=== PATIENT | female | born 1945 | race Caucasian/White ===

== ENCOUNTER 2021-02-04 03:23 | Observation (INO) | payer OTHER, SELFPAY ==
[2021-02-04] VITALS (24 sets, daily range): BP systolic 97–147; BP diastolic 49–79; PULSE 59–80; RESP 16–18; TEMP 36.4–37.1; O2SAT 82–100
--- NOTE | 2021-02-04 04:01 | ED.GENADUL_ITS ---
Discharge Plan Disposition Patient Disposition: [facility] INPATIENT Condition: Good Discharge Details Chief Complaint: Abd Prob Clinical Impression: Colitis ED Provider: Polo Pires Home Meds and New Rx's Prescriptions: No Action acyclovir 400 mg Tablet 400 mg PO BID RF: 0 Xarelto 20 mg Tablet 20 mg PO DAILY RF: 0 Medical Decision Making 75-year-old female presents today for evaluation of abdominal pain. Patient states that pain began at about 10 PM, she had pork chops and cake for dinner earlier that night. She started having some loose stool, nausea, but no vomiting. She describes the pain as sharp and stabbing, it comes and goes. It is in the periumbilical region and radiates to the left abdomen. The patient is new to the area, and she has somewhat of a vague historian on her medical history but she does have a pacemaker, high cholesterol, she is on Xarelto potentially for atrial fibrillation. Of note the patient also does admit to recently taking a few leftover pills that she had from a previous urinary tract infection for a current suspected urinary tract infection a few days ago. These appear to have been Bactrim pills. Patient denies any other complaints. She denies any blood in her stool. No other modifying factors. Physical exam demonstrates mild lower abdominal tenderness in the periumbilical region, as well as left lower quadrant abdominal pain. Does radiate to the left upper quadrant as well on exam. Stool is somewhat liquidy, is orange in color, difficult to ascertain if this is diluted blood or not. Patient is on a blood thinner. Differential includes colitis, less likely mesenteric ischemia, infectious diarrhea, or C. difficile are also on the differential. We will rehydrate, get stool studies, treat the patient's pain, get a CT scan of the abdomen, monitor closely and reassess. 6:52 AM Laboratory work-up has returned, no white count or bandemia, lactate notably elevated at 2.7, electrolytes stable, creatinine 1.2, bilirubin and liver function normal, troponin and EKG is stable and otherwise unremarkable. Urinalysis shows no evidence of infection. Pending stool studies however C. difficile is negative. CT scan shows evidence of colitis of the descending and sigmoid portions, as well as a exophytic uterine fibroid and a 5.3 cm ovarian cyst. Patient symptoms at this time are inconsistent with ovarian torsion and instead clinically consistent with colitis. Patient still has moderate pain, we will redose analgesics. Based on the patient's pain, age, and risk factors I do feel inpatient admission would be beneficial for the patient at this stage. We will start Cipro Flagyl IV, and contact the hospitalist for admission. FINDINGS: Tubes, catheters and devices: Transvenous pacemaker. Heart: Cardiomegaly. Mediastinal space: Hiatal hernia. Aorta: No aortic aneurysm or aortic dissection. Scattered atherosclerotic calcifications. Celiac trunk and mesenteric arteries: No occlusion or significant stenosis. Renal arteries: No occlusion or significant stenosis. Accessory left renal artery. Right iliac arteries: No occlusion or significant stenosis. Left iliac arteries: No occlusion or significant stenosis. Liver: Liver normal in size and contour with homogeneous enhancement of parenchyma. No portal venous gas. Gallbladder and bile ducts: Unremarkable. No calcified stones. No ductal dilation. Pancreas: Unremarkable. No mass. No ductal dilation. Spleen: Unremarkable. No splenomegaly. Adrenal glands: Unremarkable. No mass. Kidneys and ureters: Hypoenhancing areas or lesions too small to characterize in each kidney. Right lower pole parapelvic or cortical cyst measures 1.4 cm. No hydronephrosis. Stomach and bowel: No dilated loops of small bowel or colonic dilatation. Diffuse wall thickening is noted in left colon from level of mid descending portion to distal sigmoid associated with hyperenhancement of mucosa and pericolonic fat stranding. No definite areas of contrast extravasation or demonstrated in colonic lumen. There are few, scattered, colonic diverticula No pneumatosis. Appendix: No evidence of appendicitis. Intraperitoneal space: No free intraperitoneal gas. No ascites. Lymph nodes: Unremarkable. No enlarged lymph nodes. Urinary bladder: Unremarkable. No mass. Reproductive: 3.5 cm mass extends ventrally from left uterine fundus. 5.3 cm right ovarian cyst. Bones/joints: No acute fracture. No dislocation. Soft tissues: There is an uncomplicated fat-containing umbilical hernia. IMPRESSION: 1. No aortic aneurysm or dissection. 2. No mesenteric, renal or iliac arterial occlusive disease. 3. Findings consistent with colitis involving descending and sigmoid portions. 4. Colonic diverticula. 5. Exophytic uterine fibroid. 6. 5.3 cm right ovarian cyst. 7. Hiatal hernia. 8. Cardiomegaly. Thank you for allowing us to participate in the care of your patient. Dictated and Authenticated by: Andrew Beltran DO 02/04/2021 6:40 AM Eastern Time ([place] & [place]) HPI General Date/Time Provider Initiated Documentation: 02/04/21 03:24 . HPI Narrative: 75-year-old female presents today for evaluation of abdominal pain. Patient states that pain began at about 10 PM, she had pork chops and cake for dinner earlier that night. She started having some loose stool, nausea, but no vomiting. She describes the pain as sharp and stabbing, it comes and goes. It is in the periumbilical region and radiates to the left abdomen. The patient is new to the area, and she has somewhat of a vague historian on her medical history but she does have a pacemaker, high cholesterol, she is on Xarelto potentially for atrial fibrillation. Of note the patient also does admit to recently taking a few leftover pills that she had from a previous urinary tract infection for a current suspected urinary tract infection a few days ago. These appear to have been Bactrim pills. Patient denies any other complaints. She denies any blood in her stool. No other modifying factors. Related Data Home Medications Medication Instructions Recorded Confirmed acyclovir 400 mg PO BID 02/04/21 02/04/21 rivaroxaban [Xarelto] 20 mg PO DAILY 02/04/21 02/04/21 Allergies Allergy/AdvReac Type Severity Reaction Status Date / Time erythromycin base AdvReac Unverified 02/04/21 05:04 Penicillins AdvReac Unverified 02/04/21 05:04 tetracycline AdvReac Unverified 02/04/21 05:04 General Stated Complaint: Abd Prob GAGAN: 2 Review of Systems All systems reviewed & are unremarkable except as noted in HPI and below PFSH Social History Smoking/Tobacco Use Status: Never Smoking risk assessment performed?: Yes Alcohol Intake: current Alcohol Intake frequency: a few times a month Drug use: Never Substance use type: does not use Do you feel safe at home: Yes Do you feel safe in your relationship?: Yes Exam Narrative Exam Narrative: 1.Const: Well-nourished, Well-developed, appearing stated age 2.Eyes: PERRL, no conjunctival injection, and symmetrical lids. 3.ENT: Atraumatic external nose and ears. Dry MM. Neck: Symmetric, trachea midline, No thyromegaly. 4.CVS: +S1/S2, No murmurs or gallops. Peripheral pulses 2+ and equal in all extremities. Brisk capillary refill in all extremities. 5.RESP: Unlabored respiratory effort. Clear to auscultation bilaterally. No wheezes rales or rhonchi 6.GI: Soft, nondistended, mild tenderness in the lower abdominal quadrant and the periumbilical region. No guarding. No rebound. 7.MSK: Normocephalic/Atraumatic, Extremities w/o deformity or ttp No cyanosis or clubbing, Normal movement of all extremities 8.Skin: Warm, Dry. No rashes or lesions. 9.Neuro: ship's master II-XII grossly intact. Sensation grossly intact, no focal neurologic deficits. 10.Psych: (AAO) x3. Appropriate mood and affect Course Vital Signs Vital signs: Blood Pressure Position Supine 02/04/21 03:41 Oxygen Delivery Method Room Air 02/04/21 03:41 Oxygen Flow Rate 0 02/04/21 03:41
--- NOTE | 2021-02-04 04:15 | RT.EKG_ITS ---
APPROVED REPORT Exam: Resting ECG Reason for Exam: abdominal pain Patient Location: E HR:63 bpm ECG Measurements Heart Rate 63 AXIS SC 144 P 0 QRSd 92 QRS 55 QT 470 T 42 QTc 480 Conclusion Sinus rhythm...normal P axis, V-rate 60- 99 Physician: no stemi
--- NOTE | 2021-02-04 04:17 | DI.CT_ITS ---
Exam(s) CT ABDOMEN PELVIS CTA EXAM: CT ABDOMEN PELVIS CTA CLINICAL HISTORY: abdominal pain, diarrhea, afib, bloody stool?. TECHNIQUE: Imaging Protocol: Axial CT angiography was performed with multi-slice acquisition and m ulti-planar and/or 3D reconstructions. CONTRAST MATERIAL: Intravenous: Omnipaque 350 Contrast volume:85 mL Oral: No COMPARISON: No exams were available for comparison FINDINGS: ABDOMEN AND PELVIS: Abdomen: Celiac axis/mesenteric arteries: No evidence of occlusion or significant stenosis. Renal Arteries: No evidence of occlusion or significant stenosis. There is a single renal artery per fusing each kidney. Moderate atherosclerosis at the origin of the right renal artery. Aorta: No evidence of occlusion or significant stenosis. No aneurysm or dissection. Atherosclerosi s. Pelvis: Iliac Arteries: No evidence of occlusion or significant stenosis. Mild atherosclerosis. Common Femoral Arteries: No evidence of occlusion or significant stenosis. ABDOMEN: Lung bases: No acute abnormality. Small hiatal hernia. Transvenous cardiac pacemaker. Liver: Normal density. No measurable mass. Portal, Superior Mesenteric, and Splenic Veins: Unremarkable. Gallbladder and Biliary Tract: No radiodense calculus or dilation. Pancreas: Normal density, no abnormal calcifications or inflammatory process. Spleen: Normal. Adrenals: No masses seen. Kidneys: Normal size, contour and axis. No radiodense stones or obstructive uropathy. No masses seen. Bowel: No evidence of obstruction. There is diffuse bowel wall thickening from the mid descending co shelley into the sigmoid colon with mild pericolonic fat stranding. There are few scattered diverticula in the sigmoid colon. No evidence of appendicitis. There are few diverticula in the colon but no ev idence of acute diverticulitis Peritoneal Cavity: No ascites, collection or mesenteric inflammatory response. No free air. Lymph Nodes: Within normal limits. Bones: Within normal limits. Soft Tissues: Unremarkable. PELVIS: Bladder: Incompletely distended, but grossly unremarkable. Reproductive Organs: There is a 3.1 x 3.2 cm exophytic left uterine fibroid. There is a 5.3 x 4.2 cm right ovarian cyst. Lymph Nodes: Within normal limits. Bones: Within normal limits. IMPRESSION: 1. Findings of colitis involving the descending and sigmoid colons. 2. 5.3 cm right ovarian cyst. Gynecologic follow-up is recommended in this postmenopausal patient. 3. Uterine fibroid. 4. No evidence of abdominal aortic aneurysm or dissection. RADIATION DOSE DELIVERED: 995.74mGy.cm Total DLP 995.74mGy.cm Total DLP DATA REPOSITORY: All CT scans at this facility are submitted to the National Radiology Data Registry (NRDR) Dose Index Registry (DIR) with the [employer] (ACR). RADIATION OPTIMIZATION: All CT scans at this facility use at least one of these dose optimization te chniques: automated exposure control; mA and/or kV adjustment per patient size (includes targeted exa ms where dose is matched to clinical indication); or iterative reconstruction.
[2021-02-04 04:21] LABS: Bilirubin Moderate (Negative); Blood Negative (Negative); Clarity Sl Cloudy (Clear); Glucose Negative (Negative); Ketones Trace mg/dL (Negative); Leukocyte Esterase Negative (Negative); Nitrite Negative (Negative); Specific Gravity >= 1.030 (1.005-1.025); pH 5.5 (5-8)
[2021-02-04 04:33] LABS: Abs Immature Grans 0.03 10^3/uL (0.0-0.06); Absolute Basophil Count 0.06 10^3/uL (0.0-0.2); Absolute Lymphocyte Count 1.49 10^3/uL (1.2-3.4); Absolute Monocyte Count 0.62 10^3/uL (0.1-0.8); Absolute Neutrophil Count 8.09 10^3/uL (1.2-6.7); Basophils % 0.6; HGB 13.5 g/dL (11.2-15.7); Immature Grans % 0.3; Lymphocytes % 14.3; MCH 32.4 pg (27.0-33.0); MCHC 31.4 % (32.0-36.0); MCV 103.1 fL (80-95); MPV 9.2 fL (8.0-11.0); Neutrophils % 77.8; Nucleated RBC 0 %; Platelet Count 232 10^3/uL (130-400); RBC 4.17 10^6/uL (3.93-5.22); RDW 13.2 % (11.7-14.6); RDW-SD 50.9 fL; WBC 10.39 10^3/uL (4.4-10.8)
[2021-02-04 04:37] LABS: Lactate 2.7 mmol/L (0.6-1.4)
[2021-02-04] MEDS: Normal Saline 1,000 ML 1000 ML IV (04:47)
[2021-02-04 04:58] LABS: ALT 22 U/L (14-59); AST 26 U/L (15-37); Albumin 4.1 g/dL (3.4-5.0); Alkaline Phosphatase 77 U/L (46-116); Anion Gap 14.5 mmol/L (3-11); BUN 23 mg/dL (7-18); Bilirubin, Total 0.6 mg/dL (0.2-1.0); CO2 21.5 mmol/L (21.0-32.0); CREATININE 1.2 mg/dL (0.55-1.02); Calcium 8.5 mg/dL (8.5-10.1); Chloride 106 mmol/L (98-107); Estimated GFR 44.04 (mL/min/1.73m2); Glucose 184 mg/dL (74-106); Potassium 3.9 mmol/L (3.5-5.1); Sodium 142 mmol/L (136-145); Total Protein 7.2 g/dL (6.4-8.2)
[2021-02-04 05:01] LABS: Troponin I < 0.05 ng/mL (<0.06)
[2021-02-04 05:26] LABS: C Diff PCR Negative (Negative)
[2021-02-04] MEDS: Omnipaque 350 MG/ML 100 ML BTL IJ (05:38)
[2021-02-04] MEDS: Normal Saline Flush 10 ML SYR IVP ×4 (05:40→21:55)
--- NOTE | 2021-02-04 06:40 | DI.VRAD_ITS ---
PROCEDURE INFORMATION: Exam: CTA Abdomen and Pelvis With Contrast Exam date and time: 02/04/2021 4:57 AM Age: 75 years old Clinical indication: Other: Bloody stools, diarrhea, afib; Generalized; Prior surgery; Surgery date: 6+ months; Surgery type: Pacemaker; Patient HX: Abdominal pain, diarrhea, afib, bloody stool? . ? Mesenteric ischemia TECHNIQUE: Imaging protocol: Computed tomographic angiography of the abdomen and pelvis with contrast material. 3D rendering (Not supervised by radiologist): MIP and/or 3D reconstructed images were created by the technologist. Radiation optimization: All CT scans at this facility use at least one of these dose optimization techniques: automated exposure control; mA and/or kV adjustment per patient size (includes targeted exams where dose is matched to clinical indication); or iterative reconstruction. Contrast material: OMNIPAQUE 350; Contrast volume: 85 ml; Contrast route: INTRAVENOUS (IV); COMPARISON: No relevant prior studies available. FINDINGS: Tubes, catheters and devices: Transvenous pacemaker. Heart: Cardiomegaly. Mediastinal space: Hiatal hernia. Aorta: No aortic aneurysm or aortic dissection. Scattered atherosclerotic calcifications. Celiac trunk and mesenteric arteries: No occlusion or significant stenosis. Renal arteries: No occlusion or significant stenosis. Accessory left renal artery. Right iliac arteries: No occlusion or significant stenosis. Left iliac arteries: No occlusion or significant stenosis. Liver: Liver normal in size and contour with homogeneous enhancement of parenchyma. No portal venous gas. Gallbladder and bile ducts: Unremarkable. No calcified stones. No ductal dilation. Pancreas: Unremarkable. No mass. No ductal dilation. Spleen: Unremarkable. No splenomegaly. Adrenal glands: Unremarkable. No mass. Kidneys and ureters: Hypoenhancing areas or lesions too small to characterize in each kidney. Right lower pole parapelvic or cortical cyst measures 1.4 cm. No hydronephrosis. Stomach and bowel: No dilated loops of small bowel or colonic dilatation. Diffuse wall thickening is noted in left colon from level of mid descending portion to distal sigmoid associated with hyperenhancement of mucosa and pericolonic fat stranding. No definite areas of contrast extravasation or demonstrated in colonic lumen. There are few, scattered, colonic diverticula No pneumatosis. Appendix: No evidence of appendicitis. Intraperitoneal space: No free intraperitoneal gas. No ascites. Lymph nodes: Unremarkable. No enlarged lymph nodes. Urinary bladder: Unremarkable. No mass. Reproductive: 3.5 cm mass extends ventrally from left uterine fundus. 5.3 cm right ovarian cyst. Bones/joints: No acute fracture. No dislocation. Soft tissues: There is an uncomplicated fat-containing umbilical hernia. IMPRESSION: 1. No aortic aneurysm or dissection. 2. No mesenteric, renal or iliac arterial occlusive disease. 3. Findings consistent with colitis involving descending and sigmoid portions. 4. Colonic diverticula. 5. Exophytic uterine fibroid. 6. 5.3 cm right ovarian cyst. 7. Hiatal hernia. 8. Cardiomegaly. Dictated and Authenticated by: Andrew Beltran MD. Ordering:CHUCK Cuellar MD
[2021-02-04 07:00] LABS: Source Nasal/Nares
[2021-02-04] MEDS: CIPROFLOXACIN 400 MG/200 ML BAG 200 MG IVPB ×2 (07:21→20:22)
[2021-02-04] MEDS: metroNIDAZOLE 500 MG/100 ML BAG 100 MG IVPB ×2 (07:22→16:29)
[2021-02-04] MEDS: Lactated Ringers 1,000 ML 50 ML IV (09:57)
[2021-02-04 10:04] LABS: COVID-19 PCR Negative (Negative)
[2021-02-04] MEDS: Acetaminophen 500 MG TAB 1000 MG PO ×2 (10:09→21:54)
[2021-02-04] MEDS: MORPHine 4 MG/ML SYR IVP (10:45)
--- NOTE | 2021-02-04 11:34 | PT.INNT ---
Date of service: 02/04/21 PT Notes Visit Reasons: Colitis Per consultation with prescribing provider TAURUS Laureano, PT order will be withdrawn as patient has been independent inside her room. Thank you for the opportunity to participate in the care of this patient. Elisha Barclay PT, DPT, CLT [facility] [place], [place]
--- NOTE | 2021-02-04 12:33 | W.GYNCONSULT ---
Date of service: 02/04/21 Time of Service: 12:33 Assessment and Plan Assessment and plan (1) Ovarian cyst: Status: Acute Assessment and plan: Pt reports that ovarian cyst has been present for years. Incidental finding at time of eval for abdominal pain in [place]. Hand Ii Blocker was planning to perform bilateral salpingectomy but insurance issues prevented from surgery being completed. Has serial hCGs-nl. I recommend pelvic u/s while hospitalized to better characterize the cyst. Expectant management advised at this time. Qualifiers: Laterality: right Qualified Code(s): N83.201 - Unspecified ovarian cyst, right side (2) Pacemaker: Status: Acute (3) Abdominal pain: Status: Acute Assessment and plan: based on today's exam I doubt that abd pain is result of ovarian cyst. I told pt that I would be happy to follow her as an outpt in [facility] dept. Qualifiers: Abdominal location: lower abdomen, unspecified Qualified Code(s): R10.30 - Lower abdominal pain, unspecified (4) Lipoma of anterior chest wall: Status: Acute Assessment and plan: It is becoming symptomatic. Will address as an outpt. (5) Mastalgia: Status: Acute Assessment and plan: Pt does not recall the date of her prior mammogram. Can be evaluated as an outpt. History of Present Illness History of Present Illness Chief Complaint: R sided ovarian cyst Narrative: Pt is a postmenopausal P2 female who was noted to have a R sided 5.3cm ovarian cyst on CT performed on 02/04/21. The imaging was ordered to assess abdominal pain and she was given diagnosis of colitis. Pt reports the the cyst has been present for a number of years and was scheduled to be removed until her insurance changed and she was followed with serial CA 125's instead, all of which were normal. She reports that she has never been symptomatic as a result of the ovarian cyst. PGynHx. 52yo. Menopause. No postmenopausal bleeding. Nl Mammograms. Can't recall most recent mammogram. Nl Pap hx. Not sexually active. Consults Consult date: 02/04/21 Requesting physician: Sridevi Lacy Review of Systems Narrative: Pt is a 75yo postmenopausal P2 female who was admitted to hospitalist service this morning after presenting to the [facility] ED with generalized abdominal pain and diarrhea Respiratory Respiratory: Reports system reviewed and no additional complaints, except as documented Gastrointestinal Gastrointestinal: Reports abdominal pain (generalized per pt report) and Reports diarrhea (brown, yellow ) Genitourinary Genitourinary: Reports amenorrhea, Denies prolapse symptoms, Denies urinary incontinence, Denies urinary urgency and Denies vaginal odor Integumentary/Breasts Skin/Breast: Reports breast mass (R breast lateral aspect. ) Psychiatric Comments: [place]oved to [place] from [place] in November. Trying to establish health care and find low income housing. [facility] Medical History (Updated 02/04/21 @ 16:07 by Maria Luz Crow MD) Abdominal pain 01/2021. Dx diverticulosis Cardiomegaly Colitis Findings consistent with colitis involving descending and sigmoid portions. Colonic diverticulum Hiatal hernia Lipoma of anterior chest wall Ovarian cyst R sided 5.3cm. Previously followed in [place]. Serial nl [id number]. Pacemaker Uterine fibroid Surgical History (Updated 02/04/21 @ 12:48 by Maria Luz Crow MD) H/O: section Social History (Updated 02/04/21 @ 12:51 by Maria Luz Crow MD) Smoking/Tobacco Use Status: Never Smoking risk assessment performed?: Yes Alcohol Intake: current Alcohol Intake frequency: a few times a month Drug use: Never Substance use type: does not use Household members: family and other Details: living with adult daughter and her family. 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 Sexually active: No Do you feel safe at home: Yes Do you feel safe in your relationship?: Yes Female Reproductive History Menstrual Menopause type: natural (in her 50's) History History Para 2 Hx # Term Pregnancies Multiple births Hx # Pregnancies Ectopic pregnancies AB induced Hx Number of Living Children 2 AB spontaneous Exam Narrative Exam Narrative: Pt presented to [facility] ED with worsening abdominal pain, diarrhea. Pt was found to have L sided diverticulitis extending to the sigmoid colon and admitted to the Hospitalist Service. At the time of admission: Troponin was negative, venous blood gas Lactate elevated @ 2.7, WBC nl and CR 1.2. No evidence of UTI. CT imaging of the pelvis show a 5.3cm R ovarian cyst. Nl mass identified on the L ovary. Uterus nl size with small fundal fibroid. I was asked to consult regarding the R sided ovarian cyst. Const General: no acute distress Nutritional Appearance: average body habitus Orientation: alert, awake and oriented x3 Chest Chest: normal inspection of the chest Breast inspection: normal inspection of the breasts, normal inspection of the axillae and abnormal inspection of the axilla Breast palpation: normal palpation of the breasts (1cm area of tenderness R breast - outer aspect.), normal palpation of the axillae and no axillary lymphadenopathy Chest/axillae images: 1. Lipoma 2. focal breast tenderness Resp Effort & Inspection: normal respiratory effort GI Inspection: normal to inspection and scar (not visible) Palpation: soft, no hepatosplenomegaly and mass (beneath lateral aspect of L breast) LUQ soft (4x4cm in diameter) and tender (only when rolling onto her L side) Percussion: normal to percussion Rectal Exam - female: deferred General: No CVA tenderness and deferred (Majority of the visit was spent in obtaining Hand Ii Blocker Hx) Back/Spine/Pelvis Back: no CVA tenderness Pelvis: no pain with anterior-posterior compression and no pain with lateral compression Skin General skin exam: no rashes or lesions noted (Lipoma) Extrem General: normal to inspection Psych Appearance: grossly normal Mental Status: mental status grossly normal Speech and Movement: speech and movement normal Mood: anxious mood Affect: anxious affect Attitude: cooperative Thought Process: normal Thought Content: normal Insight: insight good Judgment: judgment good Results Last Vital Signs Temp 98.2 F 02/04/21 08:40 Pulse 70 02/04/21 08:40 Resp 18 02/04/21 08:40 BP 133/76 02/04/21 08:40 Pulse Ox 98 02/04/21 08:40 Labs Result diagrams: 02/04/21 04:25 02/04/21 04:25 Labs: Laboratory Results - last 24 hr 02/04/21 02/04/21 02/04/21 04:00 04:10 04:25 WBC RBC Hgb Hct MCV MCH MCHC RDW Plt Count MPV Immature Gran % Neutrophils % Lymphocytes % Monocytes % Eosinophils % Basophils % Nucleated RBC % Absolute Neutrophils Absolute Lymphocytes Absolute Monocytes Absolute Eosinophils Absolute Basophils VBG Lactate Sodium 142 Potassium 3.9 Chloride 106 Carbon Dioxide 21.5 Anion Gap 14.5 H BUN 23 H Creatinine 1.2 H Estimated GFR/1.73 m2 44.04 Glucose 184 H Calcium 8.5 Total Bilirubin 0.6 AST 26 ALT 22 Alkaline Phosphatase 77 Troponin I Total Protein 7.2 Albumin 4.1 Urine Color Avis Urine Clarity Sl Cloudy Urine pH 5.5 Ur Specific [place] >= 1.030 H Urine Protein Negative Urine Ketones Trace H Urine Blood Negative Urine Nitrite Negative Urine Bilirubin Moderate H Urine Urobilinogen 1.0 H Ur Leukocyte Esterase Negative Urine Glucose Negative Stl C.difficile Tox PCR Negative COVID-19 Source SARS-CoV-2 (PCR) 02/04/21 02/04/21 02/04/21 04:25 04:25 04:25 WBC 10.39 RBC 4.17 Hgb 13.5 Hct 43.0 MCV 103.1 H MCH 32.4 MCHC 31.4 L RDW 13.2 Plt Count 232 MPV 9.2 Immature Gran % 0.3 Neutrophils % 77.8 Lymphocytes % 14.3 Monocytes % 6.0 Eosinophils % 1.0 Basophils % 0.6 Nucleated RBC % 0 Absolute Neutrophils 8.09 H Absolute Lymphocytes 1.49 Absolute Monocytes 0.62 Absolute Eosinophils 0.10 Absolute Basophils 0.06 VBG Lactate 2.7 H* Sodium Potassium Chloride Carbon Dioxide Anion Gap BUN Creatinine Estimated GFR/1.73 m2 Glucose Calcium Total Bilirubin AST ALT Alkaline Phosphatase Troponin I < 0.05 Total Protein Albumin Urine Color Urine Clarity Urine pH Ur Specific [place] Urine Protein Urine Ketones Urine Blood Urine Nitrite Urine Bilirubin Urine Urobilinogen Ur Leukocyte Esterase Urine Glucose Stl C.difficile Tox PCR COVID-19 Source SARS-CoV-2 (PCR) 02/04/21 06:55 WBC RBC Hgb Hct MCV MCH MCHC RDW Plt Count MPV Immature Gran % Neutrophils % Lymphocytes % Monocytes % Eosinophils % Basophils % Nucleated RBC % Absolute Neutrophils Absolute Lymphocytes Absolute Monocytes Absolute Eosinophils Absolute Basophils VBG Lactate Sodium Potassium Chloride Carbon Dioxide Anion Gap BUN Creatinine Estimated GFR/1.73 m2 Glucose Calcium Total Bilirubin AST ALT Alkaline Phosphatase Troponin I Total Protein Albumin Urine Color Urine Clarity Urine pH Ur Specific [place] Urine Protein Urine Ketones Urine Blood Urine Nitrite Urine Bilirubin Urine Urobilinogen Ur Leukocyte Esterase Urine Glucose Stl C.difficile Tox PCR COVID-19 Source Nasal/Nares SARS-CoV-2 (PCR) Negative
--- NOTE | 2021-02-04 13:44 | HPE_ITS ---
Date of service: 02/04/21 Time of Service: 10:00 Assessment and Plan Assessment and plan (1) Colitis: Start date: 02/04/21 Start time: 10:00 Status: Acute Assessment and plan: Found on CT initiated on IVF LR @ 50, clear unless nauseated then NPO antiemetics, analgesics for pain cipro and flagyl repeat labs in am (2) Pacemaker: Start date: 02/04/21 Start time: 10:00 Status: Acute Assessment and plan: On xarelto 20 mg murmur and mitral regurgitation (3) Ovarian cyst: Start date: 02/04/21 Start time: 10:00 Status: Chronic Assessment and plan: Found to have 5.3 mm ovarian right cyst. MAMMAL CONTROL AGENT consulted. Transvangianal u/s placed by orthotic assistant urgent pending Will have orthotic assistant follow Qualifiers: Laterality: right Qualified Code(s): N83.201 - Unspecified ovarian cyst, right side (4) Abdominal pain: Start date: 02/04/21 Start time: 10:00 Status: Acute Assessment and plan: to lower abdomen worse in RLQ, see note for CT results as above Qualifiers: Abdominal location: lower abdomen, unspecified Qualified Code(s): R10.30 - Lower abdominal pain, unspecified (5) DVT prophylaxis: Start date: 02/04/21 Start time: 10:00 Status: Acute Assessment and plan: on xarelto for possible afib though HR RRR (6) Discharge planning issues: Start date: 02/04/21 Start time: 10:00 Status: Acute Assessment and plan: Discharge home when medically ready discussed with Nolker History of Present Illness History of Present Illness Chief Complaint: Abdominal pain Narrative: 75 y.o female with PMH of pacemaker, questionable afib, presented to [facility] with c/o of nausea and abdominal pain. Pain began night prior to admission after eating dinner. She states pain is worse in bilateral lower quadrants of her abdomen. Labs in the ED remarkable for elevated anion gap of 14.5, BUN 23 and creatinine of 1.2, glucose of 184. She was asked to be admitted to /s for further management. CTA revealed 1. Findings of colitis involving the descending and sigmoid colons. 2. 5.3 cm right ovarian cyst. Gynecologic follow-up is recommended in this postmenopausal patient. 3. Uterine fibroid. 4. No evidence of abdominal aortic aneurysm or dissection. Cipro and flagyl initiated, orthotic assistant consulted d/t cyst. See note from them. analgesic for pain, IV hydration with antiemetics. Will start on clears if feeling sick will make NPO. Review of Systems All systems reviewed & are unremarkable except as noted in HPI and below PFSH Medical History Abdominal pain 01/2021. Dx diverticulosis Cardiomegaly Colitis Findings consistent with colitis involving descending and sigmoid portions. Colonic diverticulum Hiatal hernia Lipoma of anterior chest wall Ovarian cyst R sided 5.3cm. Previously followed in [place]. Serial nl [id number]. Pacemaker Uterine fibroid Surgical History H/O: section Social History Smoking/Tobacco Use Status: Never Smoking risk assessment performed?: Yes Alcohol Intake: current Alcohol Intake frequency: a few times a month Drug use: Never Substance use type: does not use Household members: family and other Details: living with adult daughter and her family. 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 Sexually active: No Do you feel safe at home: Yes Do you feel safe in your relationship?: Yes Female Reproductive History Menstrual Menopause type: natural (in her 50's) History History Para 2 Hx # Term Pregnancies Multiple births Hx # Pregnancies Ectopic pregnancies AB induced Hx Number of Living Children 2 AB spontaneous Meds Allergies and Home Medications Allergies Allergy/AdvReac Type Severity Reaction Status Date / Time erythromycin base AdvReac Unverified 02/04/21 05:04 Penicillins AdvReac Unverified 02/04/21 05:04 tetracycline AdvReac Unverified 02/04/21 05:04 Home Medications Medication Instructions Recorded Confirmed Type acyclovir 400 mg PO BID 02/04/21 02/04/21 History rivaroxaban [Xarelto] 20 mg PO DAILY 02/04/21 02/04/21 History Exam Const General: cooperative, comfortable and no acute distress Orientation: alert, awake and oriented x3 HENMT Head: normal to inspection, normocephalic and atraumatic Mouth: moist mucous membranes Eyes Eyelids: eyelids normal Pupils: PERRL EOM: EOM intact bilaterally Neck Neck: normal visual inspection and no JVD Lymphatic: no lymphadenopathy noted Resp Effort & Inspection: normal respiratory effort Auscultation: clear to auscultation bilaterally Cardio Jugular venous pressure: no JVD Rhythm: regular rhythm Heart Sounds: S1 normal GI Palpation: tender (severe pain with palpation to RLQ) in the LLQ and in the RLQ Auscultation: normal bowel sounds General: No CVA tenderness and deferred Skin General skin exam: no rashes or lesions noted Neuro General: patient alert, patient awake and patient oriented x3 Cognition: normal cognition Speech: speech normal Gait: normal gait Extrem General: normal to inspection, full ROM and no clubbing, cyanosis or edema Results Labs Result diagrams: 02/04/21 04:25 02/04/21 04:25 Labs: Laboratory Results - last 24 hr 02/04/21 02/04/21 02/04/21 04:00 04:00 04:10 WBC RBC Hgb Hct MCV MCH MCHC RDW Plt Count MPV Immature Gran % Neutrophils % Lymphocytes % Monocytes % Eosinophils % Basophils % Nucleated RBC % Absolute Neutrophils Absolute Lymphocytes Absolute Monocytes Absolute Eosinophils Absolute Basophils VBG Lactate Sodium Potassium Chloride Carbon Dioxide Anion Gap BUN Creatinine Estimated GFR/1.73 m2 Glucose Calcium Total Bilirubin AST ALT Alkaline Phosphatase Troponin I Total Protein Albumin Urine Color Avis Urine Clarity Sl Cloudy Urine pH 5.5 Ur Specific Etters >= 1.030 H Urine Protein Negative Urine Ketones Trace H Urine Blood Negative Urine Nitrite Negative Urine Bilirubin Moderate H Urine Urobilinogen 1.0 H Ur Leukocyte Esterase Negative Urine Glucose Negative Stl C.difficile Tox PCR Negative COVID-19 Source SARS-CoV-2 (PCR) Cryptosporidium/Giardia Cancelled 02/04/21 02/04/21 02/04/21 04:25 04:25 04:25 WBC 10.39 RBC 4.17 Hgb 13.5 Hct 43.0 MCV 103.1 H MCH 32.4 MCHC 31.4 L RDW 13.2 Plt Count 232 MPV 9.2 Immature Gran % 0.3 Neutrophils % 77.8 Lymphocytes % 14.3 Monocytes % 6.0 Eosinophils % 1.0 Basophils % 0.6 Nucleated RBC % 0 Absolute Neutrophils 8.09 H Absolute Lymphocytes 1.49 Absolute Monocytes 0.62 Absolute Eosinophils 0.10 Absolute Basophils 0.06 VBG Lactate 2.7 H* Sodium 142 Potassium 3.9 Chloride 106 Carbon Dioxide 21.5 Anion Gap 14.5 H BUN 23 H Creatinine 1.2 H Estimated GFR/1.73 m2 44.04 Glucose 184 H Calcium 8.5 Total Bilirubin 0.6 AST 26 ALT 22 Alkaline Phosphatase 77 Troponin I Total Protein 7.2 Albumin 4.1 Urine Color Urine Clarity Urine pH Ur Specific Etters Urine Protein Urine Ketones Urine Blood Urine Nitrite Urine Bilirubin Urine Urobilinogen Ur Leukocyte Esterase Urine Glucose Stl C.difficile Tox PCR COVID-19 Source SARS-CoV-2 (PCR) Cryptosporidium/Giardia 02/04/21 02/04/21 04:25 06:55 WBC RBC Hgb Hct MCV MCH MCHC RDW Plt Count MPV Immature Gran % Neutrophils % Lymphocytes % Monocytes % Eosinophils % Basophils % Nucleated RBC % Absolute Neutrophils Absolute Lymphocytes Absolute Monocytes Absolute Eosinophils Absolute Basophils VBG Lactate Sodium Potassium Chloride Carbon Dioxide Anion Gap BUN Creatinine Estimated GFR/1.73 m2 Glucose Calcium Total Bilirubin AST ALT Alkaline Phosphatase Troponin I < 0.05 Total Protein Albumin Urine Color Urine Clarity Urine pH Ur Specific Etters Urine Protein Urine Ketones Urine Blood Urine Nitrite Urine Bilirubin Urine Urobilinogen Ur Leukocyte Esterase Urine Glucose Stl C.difficile Tox PCR COVID-19 Source Nasal/Nares SARS-CoV-2 (PCR) Negative Cryptosporidium/Giardia Last Vital Signs Temp 36.8 C 02/04/21 08:40 Pulse 70 02/04/21 08:40 Resp 18 02/04/21 08:40 BP 133/76 02/04/21 08:40 Pulse Ox 98 02/04/21 08:40
[2021-02-04] MEDS: Prochlorperazine 10 MG/2 ML VIAL IVP ×2 (14:21→21:53)
--- NOTE | 2021-02-04 16:51 | CHAPLAIN ---
Juani was resting in bed when I visited. She was pleasant and easily engaged in a conversation. She is new to the area and anticipating moving into the new [facility] apartments when they are finished. The move-in date has been delayed. Juani recently moved from [place] to [place] to be closer to her daughter and a brother. She is an artist, creating both commercial and fine art. Juani said relocating hasn't been as easy as she thought it would be. She first believed that she has food poisoning, and said she may have colitis now. Juani explained that at 75 she hasn't decided what pentecostalism denomination she follows. She is interested in learning more about the [employer], thinking her beliefs may more in line with that denomination.
[2021-02-04] MEDS: Pantoprazole 40 MG TABCR PO (20:22)
[2021-02-04 23:07] LABS: Campylobacter PCR Negative (Negative); Salmonella PCR Negative (Negative); Shiga Toxin PCR Negative (Negative); Shigella/Enteroinvasive Ecoli Negative (Negative)
--- NOTE | 2021-02-05 | DI.US_ITS ---
Exam(s) US PELVIS EXAM: US PELVIS CLINICAL HISTORY: evaluate appearance of known R ovarian cyst.. TECHNIQUE: Transabdominal pelvic ultrasound was performed using standard protocol. COMPARISON: CT CT ABDOMEN PELVIS CTA from 02/04/2021 FINDINGS: KIDNEYS: Kidneys are symmetric in size. No evidence of renal calculi. No evidence of hydronephrosis. No renal mass or cyst identified. UTERUS: Position: Anteverted. Size: 5.2 long by 3.1 AP by 4.8 transverse cm Endometrium: 0.3 cm. Normal for patient's menstrual status. Myometrium: There is a 3.4 x 3 x 3.3 cm fibroid arising from the fundal and left aspect of the uterus . This can be seen on the CT scan of the abdomen and pelvis from 02/04/2021. Cervix: Unremarkable. OVARIES: Right: 2.8 x 2.6 x 2.1 cm Cyst or mass: There is a 5.4 x 4.2 x 6 cm right paraovarian cyst. The cyst is simple with no solid c omponents or abnormal blood flow. Other small follicular cysts are seen. Left: 1.7 x 1.6 x 1.2 cm Cyst or mass: Small follicular cysts are present. DOPPLER: Color: Symmetric and uniform flow to both ovaries. No hyperemia. Duplex: Normal ovarian arterial waveforms visualized. CUL-DE-SAC: Free fluid: None. Other: None. IMPRESSION: 1. Normal sonographic appearance of the kidneys. 2. 3.4 cm exophytic uterine fibroid. 3. 6 cm simple right paraovarian/ovarian cyst. DATA REPOSITORY:
[2021-02-05] MEDS: metroNIDAZOLE 500 MG/100 ML BAG 100 MG IVPB ×3 (00:06→15:59)
[2021-02-05 03:47] VITALS: BP 100/67; PULSE 62; RESP 18; TEMP 36.6; O2SAT 97
[2021-02-05 07:12] LABS: Abs Immature Grans 0.01 10^3/uL (0.0-0.06); Absolute Basophil Count 0.03 10^3/uL (0.0-0.2); Absolute Eosinophil Count 0.07 10^3/uL (0.0-0.7); Absolute Lymphocyte Count 1.39 10^3/uL (1.2-3.4); Absolute Monocyte Count 0.45 10^3/uL (0.1-0.8); Absolute Neutrophil Count 3.94 10^3/uL (1.2-6.7); Basophils % 0.5; Eosinophils % 1.2; HCT 34.7 % (36.0-46.0); HGB 11.1 g/dL (11.2-15.7); Immature Grans % 0.2; Lymphocytes % 23.6; MCH 32.1 pg (27.0-33.0); MCV 100.3 fL (80-95); MPV 9.3 fL (8.0-11.0); Monocytes % 7.6; Neutrophils % 66.9; Nucleated RBC 0 %; Platelet Count 191 10^3/uL (130-400); RBC 3.46 10^6/uL (3.93-5.22); RDW 13.3 % (11.7-14.6); RDW-SD 49.5 fL; WBC 5.89 10^3/uL (4.4-10.8)
[2021-02-05 07:35] LABS: Anion Gap 7.5 mmol/L (3-11); BUN 12 mg/dL (7-18); CO2 23.5 mmol/L (21.0-32.0); Calcium 8.5 mg/dL (8.5-10.1); Chloride 109 mmol/L (98-107); Estimated GFR 54.35 (mL/min/1.73m2); Glucose 106 mg/dL (74-106); Potassium 4.1 mmol/L (3.5-5.1); Sodium 140 mmol/L (136-145)
[2021-02-05 07:36] LABS: Magnesium 1.7 mg/dL (1.8-2.4)
[2021-02-05] MEDS: Pantoprazole 40 MG TABCR PO ×2 (07:52→20:15)
[2021-02-05] MEDS: CIPROFLOXACIN 400 MG/200 ML BAG 200 MG IVPB ×2 (07:52→20:18)
[2021-02-05 08:18] LABS: Hemoglobin A1C 5.3 % (<5.7)
[2021-02-05 08:19] VITALS: BP 113/62; PULSE 64; RESP 16; TEMP 36.7; O2SAT 96
[2021-02-05] MEDS: Lactated Ringers 1,000 ML 50 ML IV (10:32)
[2021-02-05] MEDS: Rivaroxaban 10 MG TABLET 20 MG PO (11:38)
--- NOTE | 2021-02-05 12:58 | W.PM.PROGNOT ---
Date of Service Date of service: 02/05/21 Time of Service: 12:58 Assessment and Plan Assessment and plan (1) Ovarian cyst: Status: Chronic Assessment and plan: Pelvic ultrasound was completed earlier today. The right adnexal mass appears to be a para ovarian cyst most likely a tubal cyst. While large in size is unlikely to torse or cause significant discomfort to the patient. There is no indication that this is the cause of her abdominal pain. I recommend a follow-up ultrasound in 3 months to be performed as an outpatient. I would be happy to follow the patient in follow-up. While she remains hospitalized I will continue to see her on a daily basis. Qualifiers: Laterality: right Qualified Code(s): N83.201 - Unspecified ovarian cyst, right side Subjective Subjective Patient reports: feels better, pain is less and tolerating liquids well Interval history since last seen: HD #2. Colitis and incidental finding of R adnexal mass at time of CT of abdomen. I was asked to consult regarding the presence of the right adnexal simple appearing cyst. In speaking with the patient she stated that the presence of the cyst has been a ongoing issue and that she had been followed by HOME HEALTH CARE COORDINATOR provider in [place] prior to her relocating to [place]. Patient reports normal serial CA 125 testing. I ordered a pelvic ultrasound to better characterize the right adnexal mass. Exam Const General: comfortable Nutritional Appearance: average body habitus Orientation: alert, awake and oriented x3 Resp Effort & Inspection: normal respiratory effort GI Palpation: soft, no hepatosplenomegaly and tender in the LLQ and suprapubicly; not in the RLQ Rectal Exam - female: deferred General: deferred Other: Pelvic ultrasound report: Normal sonographic appearance of the kidneys, 3.4 cm exophytic uterine fibroid, 6 cm simple right paraovarian/ovarian cyst. Objective Last Vital Signs Temp 98.1 F 02/05/21 08:19 Pulse 64 02/05/21 08:19 Resp 16 02/05/21 08:19 BP 113/62 02/05/21 08:19 Pulse Ox 96 02/05/21 08:19 Laboratory Results - last 24 hr 02/04/21 02/04/21 02/05/21 04:00 04:00 06:13 WBC RBC Hgb Hct MCV MCH MCHC RDW Plt Count MPV Immature Gran % Neutrophils % Lymphocytes % Monocytes % Eosinophils % Basophils % Nucleated RBC % Absolute Neutrophils Absolute Lymphocytes Absolute Monocytes Absolute Eosinophils Absolute Basophils Sodium 140 Potassium 4.1 Chloride 109 H Carbon Dioxide 23.5 Anion Gap 7.5 BUN 12 D Creatinine 1.0 Estimated GFR/1.73 m2 54.35 Glucose 106 D Hemoglobin A1c Calcium 8.5 Magnesium Stool Campylobacter PCR Negative Stool Salmonella PCR Negative Stool Shigella PCR Negative Cryptosporidium/Giardia Cancelled Shiga Toxin (PCR) Negative 02/05/21 02/05/21 02/05/21 06:13 06:13 06:13 WBC 5.89 D RBC 3.46 L Hgb 11.1 L D Hct 34.7 L MCV 100.3 H MCH 32.1 MCHC 32.0 RDW 13.3 Plt Count 191 MPV 9.3 Immature Gran % 0.2 Neutrophils % 66.9 Lymphocytes % 23.6 Monocytes % 7.6 Eosinophils % 1.2 Basophils % 0.5 Nucleated RBC % 0 Absolute Neutrophils 3.94 Absolute Lymphocytes 1.39 Absolute Monocytes 0.45 Absolute Eosinophils 0.07 Absolute Basophils 0.03 Sodium Potassium Chloride Carbon Dioxide Anion Gap BUN Creatinine Estimated GFR/1.73 m2 Glucose Hemoglobin A1c 5.3 Calcium Magnesium 1.7 L Stool Campylobacter PCR Stool Salmonella PCR Stool Shigella PCR Cryptosporidium/Giardia Shiga Toxin (PCR)
--- NOTE | 2021-02-05 13:33 | PDOC.CMIN ---
- If Service Date Differs Date of service: 02/05/21 Time of Service: 13:33 Care Management Initial Assess REASON FOR HOSPITALIZATION:: Colitis PAST MEDICAL HISTORY/PAST SURGICAL HISTORY:: Abdominal pain. 01/2021. Dx diverticulosis. Cardiomegaly. Colitis. Findings consistent with colitis involving descending and sigmoid portions. Colonic diverticulum. Hiatal hernia. Lipoma of anterior chest wall. Ovarian cyst. R sided 5.3cm. Previously followed in [place]. Serial nl [id number]. Pacemaker. Uterine fibroid. section PREVIOUS FUNCTIONAL STATUS/SOCIAL/FAMILY SUPPORTS:: Juani resides with her daughter, Stormy in [facility]. She reports relocating from [place] in early November. Currently she is staying with Stormy and her youngest grand-daughter, but reports having an apartment lined up through [employer] in [place], [place]. Her point of contact for the apartment is Inocente Zepeda. 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 She reports her aunt financially supports her and sends her money monthly for her basic needs. She does not have a vehicle and is looking forward to moving to [facility] where she can access transportation and be closer to community resources. Juani reports her daughter is a vegetarian and her grand-daughter a vegan so this has created some tension around her food choices. Juani reports having many food allergies so not being able to accept MOW, and shares she has sufficient money for food. She states life has been hectic since moving and preparing to move again, but she hopes to get back to creating art again once she is settled in her new apartment. CURRENT FUNCTIONAL STATUS:: Juani is lying in bed when meets with her. She is friendly in interaction and forthcoming with information. She reports feeling better and having more oral intake than she has recently; stating the food she has eaten did not upset her stomach or cause her pain as of yet, today. ADVANCE DIRECTIVES:: None on file at [facility]. Has patient been provided with info about the portal/API?: Yes Did the patient sign up for the portal?: Yes (Previously ) CODE STATUS:: Full Code INSURANCE COVERAGE / FINANCIAL ISSUES:: No current coverage, reports working with ABELARDO previously; CM outreached for updates and next steps. Financial Assistance application to be offered once insurance updates are recieved. CURRENT HOME/COMMUNITY SERVICES/EQUIPMENT:: None, currently. PRIMARY CARE PHYSICIAN:: call center trainer tele-provider is Norma-will be offered to Juani for post hospital follow up. Express care reviewed as well. POTENTIAL DISCHARGE NEEDS:: Juani will be offered insurance support as well as PCP attachment for follow up. PATIENT/FAMILY EDUCATION NEEDS:: Review of discharge instructions, discuss Ask Me Three. ANTICIPATED BARRIERS TO DISCHARGE:: None identified at this time. TRANSPORTATION:: Via private vehicle with her daughter. PLAN:: Juani continues to be closely monitored and treated for colitis. Anticipate she will return home with no additional services, PCP attachment will be offered, as well as insurance navigation support. She will transport via private vehicle with her daughter, Stormy.
--- NOTE | 2021-02-05 13:46 | PGE_ITS ---
Date of Service Date of service: 02/05/21 Time of Service: 13:46 Assessment and Plan Assessment and plan (1) Colitis: Status: Acute Assessment and plan: Found on CT initiated on IVF LR @ 50, clear unless nauseated then NPO antiemetics, analgesics for pain cipro and flagyl repeat labs in am (2) Pacemaker: Status: Acute Assessment and plan: On xarelto 20 mg murmur and mitral regurgitation (3) Ovarian cyst: Status: Chronic Assessment and plan: Found to have 5.3 mm ovarian right cyst. SLIDE FASTENER CHAIN ASSEMBLER consulted. The right adnexal mass appears to be a para ovarian cyst most likely a tubal cyst by ultrasound. There is no indication that this is the cause of her abdominal pain. recommendations for a follow-up ultrasound in 3 months to be performed as an outpatient. no new orders Qualifiers: Laterality: right Qualified Code(s): N83.201 - Unspecified ovarian cyst, right side (4) Abdominal pain: Status: Acute Assessment and plan: to lower abdomen worse in RLQ, see note for CT results as above Qualifiers: Abdominal location: lower abdomen, unspecified Qualified Code(s): R10.30 - Lower abdominal pain, unspecified (5) DVT prophylaxis: Status: Acute Assessment and plan: on xarelto for possible afib though HR RRR (6) Discharge planning issues: Status: Acute Assessment and plan: Discharge home when medically ready discussed with Ruben Subjective Subjective Patient reports: no new complaints, feels better, tolerating liquids well, voiding w/o difficulty, diarrhea (reports improvement but still having bloody diarrhea) and afebrile; denies nausea and shortness of breath Exam Const General: cooperative, comfortable and no acute distress Orientation: alert, awake and oriented x3 HENMT Head: normal to inspection, normocephalic and atraumatic Mouth: moist mucous membranes Eyes Eyelids: eyelids normal Pupils: PERRL EOM: EOM intact bilaterally Neck Neck: normal visual inspection and no JVD Lymphatic: no lymphadenopathy noted Resp Effort & Inspection: normal respiratory effort Auscultation: clear to auscultation bilaterally Cardio Jugular venous pressure: no JVD Rhythm: regular rhythm Heart Sounds: S1 normal GI Auscultation: normal bowel sounds General: No CVA tenderness and deferred Skin General skin exam: no rashes or lesions noted Neuro General: patient alert, patient awake and patient oriented x3 Cognition: normal cognition Speech: speech normal Gait: normal gait Extrem General: normal to inspection, full ROM and no clubbing, cyanosis or edema Objective Last Vital Signs Temp 36.7 C 02/05/21 08:19 Pulse 64 02/05/21 08:19 Resp 16 02/05/21 08:19 BP 113/62 02/05/21 08:19 Pulse Ox 96 02/05/21 08:19 Laboratory Results - last 24 hr 02/04/21 02/05/21 02/05/21 04:00 06:13 06:13 WBC RBC Hgb Hct MCV MCH MCHC RDW Plt Count MPV Immature Gran % Neutrophils % Lymphocytes % Monocytes % Eosinophils % Basophils % Nucleated RBC % Absolute Neutrophils Absolute Lymphocytes Absolute Monocytes Absolute Eosinophils Absolute Basophils Sodium 140 Potassium 4.1 Chloride 109 H Carbon Dioxide 23.5 Anion Gap 7.5 BUN 12 D Creatinine 1.0 Estimated GFR/1.73 m2 54.35 Glucose 106 D Hemoglobin A1c Calcium 8.5 Magnesium 1.7 L Stool Campylobacter PCR Negative Stool Salmonella PCR Negative Stool Shigella PCR Negative Shiga Toxin (PCR) Negative 02/05/21 02/05/21 06:13 06:13 WBC 5.89 D RBC 3.46 L Hgb 11.1 L D Hct 34.7 L MCV 100.3 H MCH 32.1 MCHC 32.0 RDW 13.3 Plt Count 191 MPV 9.3 Immature Gran % 0.2 Neutrophils % 66.9 Lymphocytes % 23.6 Monocytes % 7.6 Eosinophils % 1.2 Basophils % 0.5 Nucleated RBC % 0 Absolute Neutrophils 3.94 Absolute Lymphocytes 1.39 Absolute Monocytes 0.45 Absolute Eosinophils 0.07 Absolute Basophils 0.03 Sodium Potassium Chloride Carbon Dioxide Anion Gap BUN Creatinine Estimated GFR/1.73 m2 Glucose Hemoglobin A1c 5.3 Calcium Magnesium Stool Campylobacter PCR Stool Salmonella PCR Stool Shigella PCR Shiga Toxin (PCR)
[2021-02-05 17:47] VITALS: BP 129/74; PULSE 76; RESP 15; TEMP 37.3; O2SAT 96
[2021-02-06] MEDS: metroNIDAZOLE 500 MG/100 ML BAG 100 MG IVPB ×2 (00:34→09:31)
[2021-02-06 01:17] VITALS: BP 137/75; PULSE 77; RESP 18; TEMP 36.7; O2SAT 94
[2021-02-06 06:51] LABS: Abs Immature Grans 0.01 10^3/uL (0.0-0.06); Absolute Basophil Count 0.03 10^3/uL (0.0-0.2); Absolute Eosinophil Count 0.08 10^3/uL (0.0-0.7); Absolute Lymphocyte Count 1.08 10^3/uL (1.2-3.4); Absolute Monocyte Count 0.37 10^3/uL (0.1-0.8); Absolute Neutrophil Count 2.18 10^3/uL (1.2-6.7); Basophils % 0.8; Eosinophils % 2.1; HGB 10.8 g/dL (11.2-15.7); Immature Grans % 0.3; Lymphocytes % 28.8; MCH 32.2 pg (27.0-33.0); MCHC 32.7 % (32.0-36.0); MCV 98.5 fL (80-95); MPV 9.5 fL (8.0-11.0); Monocytes % 9.9; Neutrophils % 58.1; Nucleated RBC 0 %; Platelet Count 162 10^3/uL (130-400); RBC 3.35 10^6/uL (3.93-5.22); RDW 13.2 % (11.7-14.6); RDW-SD 47.3 fL; WBC 3.75 10^3/uL (4.4-10.8)
[2021-02-06 07:16] VITALS: BP 135/81; PULSE 73; RESP 16; TEMP 36.4; O2SAT 95
[2021-02-06 07:30] LABS: Anion Gap 5.8 mmol/L (3-11); BUN 9 mg/dL (7-18); CO2 27.2 mmol/L (21.0-32.0); CREATININE 0.9 mg/dL (0.55-1.02); Calcium 8.3 mg/dL (8.5-10.1); Chloride 108 mmol/L (98-107); Glucose 98 mg/dL (74-106); Potassium 3.7 mmol/L (3.5-5.1); Sodium 141 mmol/L (136-145)
[2021-02-06] MEDS: CIPROFLOXACIN 400 MG/200 ML BAG 200 MG IVPB (08:05)
[2021-02-06] MEDS: Pantoprazole 40 MG TABCR PO (08:05)
[2021-02-06] MEDS: Normal Saline Flush 10 ML SYR IVP ×2 (08:09→11:08)
--- NOTE | 2021-02-06 10:35 | W.PM.DS.N ---
Date of service: 02/06/21 Time of Service: 10:35 DS: Diagnosis Discharge Diagnosis (1) Colitis: Start date: 02/06/21 Start time: 10:35 Status: Acute Asessment and Plan: Improving. Pain minimal. Increase diet to plain soft bland diet. No nausea or vomiting. Due to improvement will switch to PO antibx x 7 days and patient can be discharged home. Recommend continuing bland diet until able to tolerate regular diet. Avoid spicy and acidic foods. Recommend probiotic however patient states this does not agree with here Will discharge home on cipro and flagyl (2) Pacemaker: Start date: 02/06/21 Start time: 10:39 Status: Acute Asessment and Plan: Continue xarelto, follow up with cardiology as needed (3) Ovarian cyst: Start date: 02/06/21 Start time: 10:42 Status: Chronic Asessment and Plan: Transvanginal done by gyno. Follow up with gyno as an oupatient. Ovarian cyst is stable (4) Abdominal pain: Start date: 02/06/21 Start time: 10:43 Status: Acute Asessment and Plan: Improved. Able to tolerate palpation Will given pain medicine as needed, discussed with Dr. Miranda. Discharge Plan Disposition Patient Disposition: HOME Condition: Good Discharge Details Reason For Visit: Colitis Admit Date/Time: 02/04/21 07:15 Admit Provider: Momo Miranda Attending Provider: Momo Miranda Primary Care Provider: None,None Hospital Course Hospital Course: 75 y.o female with PMH of pacemaker, questionable afib, presented to [facility] with c/o of nausea and abdominal pain. Pain began night prior to admission after eating dinner. She states pain is worse in bilateral lower quadrants of her abdomen. Labs in the ED remarkable for elevated anion gap of 14.5, BUN 23 and creatinine of 1.2, glucose of 184. She was asked to be admitted to /s for further management. CTA revealed 1. Findings of colitis involving the descending and sigmoid colons. 2. 5.3 cm right ovarian cyst. Gynecologic follow-up is recommended in this postmenopausal patient. 3. Uterine fibroid. 4. No evidence of abdominal aortic aneurysm or dissection. Cipro and flagyl initiated, office machine servicer consulted d/t cyst. See note from them. analgesic for pain, IV hydration with antiemetics. She was started on clears due to feeling sick will be made NPO if she can not tolerate clears. Over course of hospitalization, office machine servicer was consulted for ovarian cyst. Transvaginal u/s was done. Stable ovarian cyst found. At this time she is going to be followed by office machine servicer will set up appt. Will switch IV antibiotics to oral. Will continue 7 day course. Abdominal pain is improved. She has very little pain with palpation will increase diet to soft. avoid acidic, and spicy foods. Recommend bland soft foods until feeling better then increase to regular diet. Follow up with PCP in 1-2 weeks. . Home Meds and New Rx's Prescriptions: New metronidazole 500 mg Tablet 500 mg PO Q8H Qty: 21 RF: 0 ciprofloxacin HCl 500 mg Tablet 500 mg PO BID Qty: 14 RF: 0 oxycodone-acetaminophen 5-325 mg Tablet 1 tab PO Q6H PRN PRNQty: 20 RF: 0 pantoprazole 40 mg Tablet,Delayed Release (Dr/Ec) 40 mg PO BID@0730,1999 Qty: 60 RF: 0 prochlorperazine maleate [Compazine] 5 mg tablet 5 mg PO TID PRNQty: 30 RF: 0 Continued acyclovir 400 mg Tablet 400 mg PO BID RF: 0 Xarelto 20 mg Tablet 20 mg PO DAILY RF: 0 Discharge Instructions Instructions: Ovarian Cyst (DC), Soft Diet (DC), Colitis (ED) Additional Instructions: Continue soft diet until able to advance to regular and feeling better Continue antibiotics until finished Follow up with gynecology and PCP as scheduled Stand Alone Forms: Nursing Discharge Form Referrals: Cheryl Calzada MD [ [facility] STAFF PHYSICIAN] - 02/10/21 2:40 pm Yazmin King [NURSE PRACTITIONER] - 02/16/21 10:15 am Activity:: Activity as Tolerated Equipment/Supplies:: No Equipment Needed Diet:: As Tolerated Discharge Orders Discharge Orders: Discharge Order (Routine); Ordered 02/06/21 Ordered By: Sridevi Lacy DS: Summary Time Spent with Patient providing and/or coordinating discharge services: Greater than 30 minutes Status at Discharge Functional status at discharge: independent ambulation Overall status at discharge: patient is progressing back to baseline Mental Status: mental status grossly normal Speech and Movement: speech and movement normal Mood: congruent mood Affect: normal affect Exam Const General: cooperative, comfortable and no acute distress Orientation: alert, awake and oriented x3 HENMT Head: normal to inspection, normocephalic and atraumatic Mouth: moist mucous membranes Eyes Eyelids: eyelids normal Pupils: PERRL EOM: EOM intact bilaterally Neck Neck: normal visual inspection and no JVD Lymphatic: no lymphadenopathy noted Resp Effort & Inspection: normal respiratory effort Auscultation: clear to auscultation bilaterally Cardio Jugular venous pressure: no JVD Rhythm: regular rhythm Heart Sounds: S1 normal GI Palpation: soft and no hepatosplenomegaly Auscultation: normal bowel sounds Other: pain improved. General: No CVA tenderness and deferred Skin General skin exam: no rashes or lesions noted Neuro General: patient alert, patient awake and patient oriented x3 Cognition: normal cognition Speech: speech normal Gait: normal gait Extrem General: normal to inspection, full ROM and no clubbing, cyanosis or edema Psych Mental Status: mental status grossly normal Speech and Movement: speech and movement normal Mood: congruent mood Affect: normal affect DS: Data Vitals/I&O Vitals and I&O: Vital Signs Temperature 36.4 C L 02/06/21 07:16 Temperature Source Skin 02/06/21 07:16 Pulse 73 02/06/21 07:16 Pulse Rhythm Regular 02/06/21 07:30 Respiratory Rate 16 02/06/21 07:16 Respiratory Effort Non-Labored 02/06/21 07:30 Respiratory Depth Normal 02/06/21 07:30 Respiratory Pattern Normal 02/06/21 07:30 Blood Pressure 135/81 02/06/21 07:16 Blood Pressure Mean 60 02/04/21 08:01 Blood Pressure Position Supine 02/04/21 03:41 Pulse Oximetry 95 02/06/21 07:16 Oxygen Delivery Method Room Air 02/06/21 07:16 Oxygen Flow Rate 0 02/06/21 07:16 Pain Level 0 02/06/21 07:16 Comment 02/06/21 07:16 Intake & Output 02/05/21 02/05/21 02/06/21 11:59 23:59 11:59 Intake Total 1088.333 / 2326.666 1238.333 / 2326.666 1290.833 / 1290.833 Output Total 1100 / 2150 1050 / 2150 975 / 975 Balance -11.667 / 176.666 188.333 / 176.666 315.833 / 315.833 Intake: IV 908.333 / 1666.666 758.333 / 1666.666 810.833 / 810.833 Oral 180 / 660 480 / 660 480 / 480 Output: Urine 1100 / 2150 1050 / 2150 975 / 975 Other: Urine Color Straw Yellow Yellow Urine Appearance Clear Clear Clear Urine Odor Normal Normal Normal Comment Void x1 in the toilet. Void x1 in the toilet. Void x1 in the toilet. Voiding Methods Toilet Toilet Toilet Data Completed and Pending Completed studies during hospitalization [Text1]: Exam(s) a CT:CT abdomen & pelvis CTA Exam(s) CT ABDOMEN PELVIS CTA EXAM: CT ABDOMEN PELVIS CTA CLINICAL HISTORY: abdominal pain, diarrhea, afib, bloody stool?. TECHNIQUE: Imaging Protocol: Axial CT angiography was performed with multi-slice acquisition and multi-planar and/or 3D reconstructions. CONTRAST MATERIAL: Intravenous: Omnipaque 350 Contrast volume:85 mL Oral: No COMPARISON: No exams were available for comparison FINDINGS: ABDOMEN AND PELVIS: Abdomen: Celiac axis/mesenteric arteries: No evidence of occlusion or significant stenosis. Renal Arteries: No evidence of occlusion or significant stenosis. There is a single renal artery perfusing each kidney. Moderate atherosclerosis at the origin of the right renal artery. Aorta: No evidence of occlusion or significant stenosis. No aneurysm or dissection. Atherosclerosis. Pelvis: Iliac Arteries: No evidence of occlusion or significant stenosis. Mild atherosclerosis. Common Femoral Arteries: No evidence of occlusion or significant stenosis. ABDOMEN: Lung bases: No acute abnormality. Small hiatal hernia. Transvenous cardiac pacemaker. Liver: Normal density. No measurable mass. Portal, Superior Mesenteric, and Splenic Veins: Unremarkable. Gallbladder and Biliary Tract: No radiodense calculus or dilation. Pancreas: Normal density, no abnormal calcifications or inflammatory process. Spleen: Normal. Adrenals: No masses seen. Kidneys: Normal size, contour and axis. No radiodense stones or obstructive uropathy. No masses seen. Bowel: No evidence of obstruction. There is diffuse bowel wall thickening from the mid descending colon into the sigmoid colon with mild pericolonic fat stranding. There are few scattered diverticula in the sigmoid colon. No evidence of appendicitis. There are few diverticula in the colon but no evidence of acute diverticulitis Peritoneal Cavity: No ascites, collection or mesenteric inflammatory response. No free air. Lymph Nodes: Within normal limits. Bones: Within normal limits. Soft Tissues: Unremarkable. PELVIS: Bladder: Incompletely distended, but grossly unremarkable. Reproductive Organs: There is a 3.1 x 3.2 cm exophytic left uterine fibroid. There is a 5.3 x 4.2 cm right ovarian cyst. Lymph Nodes: Within normal limits. Bones: Within normal limits. IMPRESSION: 1. Findings of colitis involving the descending and sigmoid colons. 2. 5.3 cm right ovarian cyst. Gynecologic follow-up is recommended in this postmenopausal patient. 3. Uterine fibroid. 4. No evidence of abdominal aortic aneurysm or dissection. : 8Age: 75 Exam(s) PROCEDURE INFORMATION: Exam: CTA Abdomen and Pelvis With Contrast Exam date and time: 02/04/2021 4:57 AM Age: 75 years old Clinical indication: Other: Bloody stools, diarrhea, afib; Generalized; Prior surgery; Surgery date: 6+ months; Surgery type: Pacemaker; Patient HX: Abdominal pain, diarrhea, afib, bloody stool? . ? Mesenteric ischemia TECHNIQUE: Imaging protocol: Computed tomographic angiography of the abdomen and pelvis with contrast material. 3D rendering (Not supervised by radiologist): MIP and/or 3D reconstructed images were created by the technologist. Radiation optimization: All CT scans at this facility use at least one of these dose optimization techniques: automated exposure control; mA and/or kV adjustment per patient size (includes targeted exams where dose is matched to clinical indication); or iterative reconstruction. Contrast material: OMNIPAQUE 350; Contrast volume: 85 ml; Contrast route: INTRAVENOUS (IV); COMPARISON: No relevant prior studies available. FINDINGS: Tubes, catheters and devices: Transvenous pacemaker. Heart: Cardiomegaly. Mediastinal space: Hiatal hernia. Aorta: No aortic aneurysm or aortic dissection. Scattered atherosclerotic calcifications. Celiac trunk and mesenteric arteries: No occlusion or significant stenosis. Renal arteries: No occlusion or significant stenosis. Accessory left renal artery. Right iliac arteries: No occlusion or significant stenosis. Left iliac arteries: No occlusion or significant stenosis. Liver: Liver normal in size and contour with homogeneous enhancement of parenchyma. No portal venous gas. Gallbladder and bile ducts: Unremarkable. No calcified stones. No ductal dilation. Pancreas: Unremarkable. No mass. No ductal dilation. Spleen: Unremarkable. No splenomegaly. Adrenal glands: Unremarkable. No mass. Kidneys and ureters: Hypoenhancing areas or lesions too small to characterize in each kidney. Right lower pole parapelvic or cortical cyst measures 1.4 cm. No hydronephrosis. Stomach and bowel: No dilated loops of small bowel or colonic dilatation. Diffuse wall thickening is noted in left colon from level of mid descending portion to distal sigmoid associated with hyperenhancement of mucosa and pericolonic fat stranding. No definite areas of contrast extravasation or demonstrated in colonic lumen. There are few, scattered, colonic diverticula No pneumatosis. Appendix: No evidence of appendicitis. Intraperitoneal space: No free intraperitoneal gas. No ascites. Lymph nodes: Unremarkable. No enlarged lymph nodes. Urinary bladder: Unremarkable. No mass. Reproductive: 3.5 cm mass extends ventrally from left uterine fundus. 5.3 cm right ovarian cyst. Bones/joints: No acute fracture. No dislocation. Soft tissues: There is an uncomplicated fat-containing umbilical hernia. IMPRESSION: 1. No aortic aneurysm or dissection. 2. No mesenteric, renal or iliac arterial occlusive disease. 3. Findings consistent with colitis involving descending and sigmoid portions. 4. Colonic diverticula. 5. Exophytic uterine fibroid. 6. 5.3 cm right ovarian cyst. 7. Hiatal hernia. 8. Cardiomegaly. Exam(s) US PELVIS EXAM: US PELVIS CLINICAL HISTORY: evaluate appearance of known R ovarian cyst.. TECHNIQUE: Transabdominal pelvic ultrasound was performed using standard protocol. COMPARISON: CT CT ABDOMEN PELVIS CTA from 02/04/2021 FINDINGS: KIDNEYS: Kidneys are symmetric in size. No evidence of renal calculi. No evidence of hydronephrosis. No renal mass or cyst identified. UTERUS: Position: Anteverted. Size: 5.2 long by 3.1 AP by 4.8 transverse cm Endometrium: 0.3 cm. Normal for patient's menstrual status. Myometrium: There is a 3.4 x 3 x 3.3 cm fibroid arising from the fundal and left aspect of the uterus. This can be seen on the CT scan of the abdomen and pelvis from 02/04/2021. Cervix: Unremarkable. OVARIES: Right: 2.8 x 2.6 x 2.1 cm Cyst or mass: There is a 5.4 x 4.2 x 6 cm right paraovarian cyst. The cyst is simple with no solid components or abnormal blood flow. Other small follicular cysts are seen. Left: 1.7 x 1.6 x 1.2 cm Cyst or mass: Small follicular cysts are present. DOPPLER: Color: Symmetric and uniform flow to both ovaries. No hyperemia. Duplex: Normal ovarian arterial waveforms visualized. CUL-DE-SAC: Free fluid: None. Other: None. IMPRESSION: 1. Normal sonographic appearance of the kidneys. 2. 3.4 cm exophytic uterine fibroid. 3. 6 cm simple right paraovarian/ovarian cyst. Labs on day of discharge: Labs from last 24 hours 02/06/21 02/06/21 02/04/21 06:20 06:20 04:00 WBC 3.75 L D RBC 3.35 L Hgb 10.8 L Hct 33.0 L MCV 98.5 H MCH 32.2 MCHC 32.7 RDW 13.2 Plt Count 162 MPV 9.5 Immature Gran % 0.3 Neutrophils % 58.1 Lymphocytes % 28.8 Monocytes % 9.9 Eosinophils % 2.1 Basophils % 0.8 Nucleated RBC % 0 Absolute Neutrophils 2.18 Absolute Lymphocytes 1.08 L Absolute Monocytes 0.37 Absolute Eosinophils 0.08 Absolute Basophils 0.03 Sodium 141 Potassium 3.7 Chloride 108 H Carbon Dioxide 27.2 Anion Gap 5.8 BUN 9 Creatinine 0.9 Estimated GFR/1.73 m2 >= 60.00 Glucose 98 Calcium 8.3 L Stool Description Not Applicable Stool Ova & Parasites SEE BELOW Cryptosporidium/Giardia SEE BELOW [facility] Medical History Abdominal pain 01/2021. Dx diverticulosis Cardiomegaly Colitis Findings consistent with colitis involving descending and sigmoid portions. Colonic diverticulum Hiatal hernia Lipoma of anterior chest wall Ovarian cyst R sided 5.3cm. Previously followed in [place]. Serial nl [id number]. Pacemaker Uterine fibroid Surgical History H/O: section Social History Smoking/Tobacco Use Status: Never Smoking risk assessment performed?: Yes Alcohol Intake: current Alcohol Intake frequency: a few times a month Drug use: Never Substance use type: does not use Household members: family and other Details: living with adult daughter and her family. 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 Sexually active: No Do you feel safe at home: Yes Do you feel safe in your relationship?: Yes Female Reproductive History Menstrual Menopause type: natural (in her 50's) History History Para 2 Hx # Term Pregnancies Multiple births Hx # Pregnancies Ectopic pregnancies AB induced Hx Number of Living Children 2 AB spontaneous
[2021-02-06] MEDS: Rivaroxaban 10 MG TABLET 20 MG PO (11:41)
--- NOTE | 2021-02-06 11:59 | PDOC.CMDIS ---
- If Service Date Differs Date of service: 02/06/21 Time of Service: 14:03 LACE Index Scoring Tool - Questions: Length of Stay (in days): 2 Acuity (Admit via E.D.?): Yes Comorbidities: Any Tumor E.D. Visits: 1 - Answers: Total Score: 8 Risk of Readmission: Low Risk Care Management Discharge Reason for Hospitalization: Colitis Discharge Plan: Juani will return home with no additional services, PCP attachment offered, Juani requested a list of local providers to outreach for attachment after she relocates to [facility] CM coordinated contact with [employer] for insurance navigation support, she will follow up with [facility] to enroll in a Qualified Health Plan with anticipated activation date of 02/20/21. Anticipate she will complete financial assistance application to offset costs of hosptialization. She will transport via private vehicle with her daughter, Stormy. Patient/Family Education Needs: Review of discharge instructions, discuss Ask Me Three.
== END 2021-02-06 15:03 | disposition home or self-care (01) ==
LOC: ER 07:36 → MS 08:35
PROVIDERS: Nurse Practitioner Acute Care; Nurse Practitioner Family; Admitting Provider Family Medicine; Emergency Provider Student in an Organized Health Care Education/Training Program; Visit Provider Family Medicine
DX: K52.89 Other specified noninfective gastroenteritis and colitis (principal); E78.00 Pure hypercholesterolemia, unspecified; Z95.0 Presence of cardiac pacemaker; Z79.01 Long term (current) use of anticoagulants; I48.91 Unspecified atrial fibrillation; N83.201 Unspecified ovarian cyst, right side; D17.1 Benign lipomatous neoplasm of skin and subcutaneous tissue of trunk; N64.4 Mastodynia; Z20.822 Contact with and (suspected) exposure to COVID-19; D25.9 Leiomyoma of uterus, unspecified
CPT/HCPCS: 36415; 80048; 80053; 87329; 87493; 87505; 87635; 93005; 96361; 96365; 96368; 96375; 99285; 74174; 76856; 81003; 83036; 83605; 83735; 84484; 85025; 87177; 93010; 99217; 99220; 99226; 99284; G0378; J0744; J0780; J2270; J3490

== ENCOUNTER 2021-04-25 11:15 | Outpatient (REF) | payer OTHER, SELFPAY ==
[2021-04-26 17:30] LABS: COVID-19 RT-PCR UVMMC Result Negative (Negative)
== END 2021-04-25 11:16 | disposition home or self-care (01) ==
LOC: LBN 11:15
PROVIDERS: Visit Provider Nurse Practitioner Family
DX: Z20.822 Contact with and (suspected) exposure to COVID-19 (principal)
CPT/HCPCS: U0003

== ENCOUNTER 2021-05-06 08:01 | Outpatient (CLI) | payer OTHER, SELFPAY ==
--- NOTE | 2021-05-06 08:00 | RT.EKG_ITS ---
APPROVED REPORT Exam: Resting ECG Reason for Exam: sick sinus syndrome Patient Location: O HR:64 bpm ECG Measurements Heart Rate 64 AXIS PA 122 P 95 QRSd 95 QRS 83 QT 431 T 65 QTc 445 Conclusion Atrial-paced complexes...other complexes also detected Borderline right axis deviation...QRS axis ( 81, 90)
== END 2021-05-06 08:02 | disposition home or self-care (01) ==
LOC: DI.CARD 08:02
PROVIDERS: PCP Nurse Practitioner Family; Visit Provider Physician Assistant
DX: I49.5 Sick sinus syndrome (principal); I51.7 Cardiomegaly
CPT/HCPCS: 93010

== ENCOUNTER 2021-06-05 01:43 | Outpatient (CLI) | payer OTHER, SELFPAY ==
--- NOTE | 2021-06-05 12:47 | DI.MAMMO_ITS ---
Exam(s) MAMMO SCREENING EXAM: MAMMO SCREENING CLINICAL HISTORY: SCREENING, Z12.31 TECHNIQUE: Mammograms were interpreted according to the usual protocol including computer analysis w ith CAD system, tomosynthesis and C-view imaging. COMPARISON: No exams were available for comparison. The patient has had prior exams at another [facility] which are not available at this time. FINDINGS: The patient did not tolerate compression well. The patient refused to complete the exam and MLO view could not be performed of the left breast. The breasts are composed of scattered fibroglandular densities, Breast Density category B. No suspicious masses or suspicious microcalcifications are seen. No skin thickening or abnormal axillary lymph nodes are seen. IMPRESSION: BI-RADS Category 1, Negative mammogram Yearly screening mammography is recommended. If the patient's previous exams become available, an addendum will be issued. Breast Density - Category B, scattered fibroglandular densities. A negative radiographic report should not delay biopsy if a dominant or clinically suspicious mass is present. Up to ten percent of cancers are not identified on mammography. A negative report may reinforce clinical impression. Adenosis and dense breasts may obscure an underlying neoplasm. False positive reports average 6 to 10%. Patient will receive a letter notifying them of these results.
== END 2021-06-05 02:03 ==
PROVIDERS: PCP Nurse Practitioner Family; Visit Provider Nurse Practitioner Family
DX: Z12.31 Encounter for screening mammogram for malignant neoplasm of breast (principal)
CPT/HCPCS: 77063; 77067

== ENCOUNTER 2021-06-16 02:26 | Outpatient (CLI) | payer OTHER, SELFPAY ==
--- NOTE | 2021-06-16 07:30 | DI.US_ITS ---
APPROVED REPORT EXAM: Comprehensive 2D, Doppler, and color-flow Echocardiogram Patient Location: Out-Patient Occupational Health Physiotherapist: Emily Garrido RDCS (AE) Indications: Aortic Valve stenosis Other Information Study Quality: Adequate Conclusion Normal left ventricular wall thickness and chamber size. Estimated ejection fraction is 60%. Wall m otion is normal Normal right ventricular size and systolic function. Pacemaker wire noted in the right heart Both atria are normal in size The aortic valve is sclerotic and trileaflet. Peak gradient is 24, mean 14, calculated aortic valve area 1.01 cm?? consistent with mild to moderate aortic stenosis. There is mild aortic regurgitation Dilated ascending aorta measuring 3.57 cm Wall motion Left Ventricle The left ventricle is normal size. The left ventricular systolic function is normal. The left ventric ular ejection fraction is within the normal range. There is normal left ventricular wall thickness. T here is normal LV segmental wall motion. There is no ventricular septal defect visualized. LVEF is 58 %. Right Ventricle The right ventricle is normal size. The right ventricular systolic function is normal. The RVSP is 21 .2_ mmHg. Pacemaker lead is present in the right ventricle. Atria The left atrium size is normal. The right atrium size is normal. The interatrial septum is intact wit h no evidence for an atrial septal defect. Aortic Valve Aortic valve is calcified. Aortic valve is probably trileaflet. Mild to moderate aortic stenosis. Pea k aortic valve gradient is 23.8mmHg. Highest mean aortic valve gradient is 14.3mmHg. Calculated EMRE b y the continuity equation is 1.01cm2. mild aortic regurgitation. Mitral Valve Mild mitral annular calcification. No evidence of mitral valve stenosis. Trace mitral regurgitation. Tricuspid Valve The tricuspid valve is normal in structure. There is no tricuspid valve stenosis. Trace tricuspid reg urgitation. Pulmonic Valve The pulmonary valve is normal in structure. There is no pulmonic valvular stenosis. There is no pulmo anthony valvular regurgitation. Great Vessels The aortic root is normal in size. The ascending aorta is mildly dilated.3.57 cm IVC is normal in siz e and collapses >50% with inspiration. Pericardium There is no pericardial effusion. 2D Dimensions IVSD d PLAX 0.92 cm F: 0.6-1.0 LV Vol A2C d MOD 108.9 mL LVPW d PLAX 0.94 cm F: 0.6 - 1.0 LV Vol A4C d MOD 91.8 mL LVID d PLAX 4.53 cm F: 3.8 - 5.2 LA vol/ BSA A2C s A-L 26.4 mL/m2 LVDs 3.10 cm F: 2.2 - 3.5 LA vol/ BSA A4C s A-L 15.1 mL/m2 Ao Root d 2.99 cm F: 2.7 - 3.3 LA Vol/ BSA Biplane s A-L 21.1 mL/m2 RA Area A4C 10.22 cm2 LA Area A4C s MOD 10.96 cm2 RA Vol/ BSA A4C s A-L 13.9 mL/m2 LA Area A2C s MOD 15.34 cm2 Ao Asc Diam d 3.57 cm F: 2.3 - 3.1 LV EF A4C MOD 58.1 % LV EF Teichholz 58.2 % LV EF A2C MOD 57.3 % LVEF (Lama's) 57.44 % F: 54 - 74 LV EF Biplane MOD 57.4 % LV Volume 85.18 mL F: 46 - 106 SV 60.47 mL LV Volume Index 52.90 mL/m2 F: 29 - 61 SV Index 37.39 mL/m2 LV Vol Biplane MOD 105.3 mL FS 30.55 % M-Mode TAPSE 2.14 cm (M/F) >1.7 LV Diastology MV E' medial 0.097 (>0.07 m/s) E/A Ratio 0.9 LV E/e MED 6.60 (<14) MV E Vmax 0.64 (0.4-1.3 m/s) MV E' lateral 0.100 (>0.1 m/s) MV A Vmax 0.75 (0.4-1.3 m/s) LV E/e LAT 6.35 (<14) MV E/A Ratio 0.82 MV E/E' medial 6.62 MV E/E' lateral 6.37 Aortic Valve LVOT Area 3.10 cm2 AoV Area Vmax 0.97 cm2 LVOT Vmax 0.76 m/s AoV Area/ BSA (Vmax) 0.60 cm2/m2 LVOT Mean Merritt. 0.57 m/s EMRE Mean Merritt. 0.98 cm2 LVOT Peak Grad 2.3 mmHg EMRE Mean Merritt. Index 0.61 cm2/m2 LVOT Mean Grad 1.4 mmHg AR DT 3550 msec LVOT VTI 0.166 m AR PHT 1030 msec LVOT Diam s 1.95 cm AoV Vmax 2.44 m/s Velocity Ratio 0.31 AoV Mean Merritt. 1.81 m/s AoV Peak Grad 23.8 mmHg LVOT SV 51.62 mL AoV Mean Grad 14.3 mmHg AoV VTI 0.512 m AoV Area VTI 1.01 cm2 AoV Area/ BSA (VTI) 0.62 cm/m2 Mitral Valve MV DT 235 (160-240 msec) MV PHT 68 msec MV Area PHT 3.23 cm2 MV VTI 0.229 m MV Area VTI 2.25 (4.0-6.0 cm2) Pulmonary Valve PV Vmax 0.79 (0.5-1.5 m/s) RVOT Peak Gr. 1.29 mmHg PV Peak Grad 2.5 mmHg RVOT Mean Gr. 0.90 mmHg PV Mean Grad 1.5 mmHg RVOT VTI 0.102 m PV VTI 0.149 m RVOT Vmax 0.57 m/s Tricuspid Valve TR Peak Grad 18.1 mmHg TR Vmax 2.13 m/s RA Pressure 3.00 mmHg RVSP (TR) 21.2 mmHg
== END 2021-06-16 02:46 ==
PROVIDERS: PCP Nurse Practitioner Family; Visit Provider Physician Assistant
DX: I35.2 Nonrheumatic aortic (valve) stenosis with insufficiency (principal); Z95.0 Presence of cardiac pacemaker; I77.810 Thoracic aortic ectasia
CPT/HCPCS: 93306

== ENCOUNTER 2022-06-14 17:09 | Outpatient (REF) | payer OTHER, SELFPAY ==
[2022-06-14 19:04] LABS: HCT 40.7 % (36.0-46.0); HGB 12.9 g/dL (11.2-15.7); MCH 31.7 pg (27.0-33.0); MCHC 31.7 % (32.0-36.0); MCV 100 fL (80-95); MPV 9.7 fL (8.0-11.0); Platelet Count 240 10^3/uL (130-400); RBC 4.07 10^6/uL (3.93-5.22); RDW 14.2 % (11.7-14.6); RDW-SD 52.4 fL; WBC 4.27 10^3/uL (4.4-10.8)
[2022-06-14 19:42] LABS: ALT 27 U/L (14-59); AST 27 U/L (15-37); Albumin 3.9 g/dL (3.4-5.0); Alkaline Phosphatase 73 U/L (46-116); Anion Gap 5.5 mmol/L (3-11); BUN 19 mg/dL (7-18); Bilirubin, Total 1.4 mg/dL (0.2-1.0); CO2 30.5 mmol/L (21.0-32.0); CREATININE 0.9 mg/dL (0.55-1.02); Calcium 9.1 mg/dL (8.5-10.1); Calculated LDL 205 mg/dL (<100); Chloride 106 mmol/L (98-107); Cholesterol 343 mg/dL (<200); Estimated GFR 67.08 (mL/min/1.73m2); Glucose 88 mg/dL (74-106); HDL Cholesterol 101 mg/dL (40-60); Sodium 142 mmol/L (136-145); TSH (W/Ref FT4) 1.86 uIU/mL (0.36-3.74); Total Protein 7.3 g/dL (6.4-8.2); Triglyceride 185 mg/dL (<150); Vitamin B12 813 pg/mL (193-986)
[2022-06-14 20:01] LABS: Hemoglobin A1C 5.4 % (<5.7)
[2022-06-16 11:03] LABS: Lyme Ab w Rflx to Lyme Confirm Negative (Negative)
[2022-06-17 17:04] LABS: Anaplasma phagocytophilum Negative (Negative); B. miyamotoi PCR Negative (Negative); Babesia divergens/MO-1 Negative (Negative); Babesia duncani Negative (Negative); Babesia microti Negative (Negative); Ehrlichia chaffeensis Negative (Negative); Ehrlichia ewingii/canis Negative (Negative); Ehrlichia muris eauclairensis Negative (Negative)
== END 2022-06-14 17:10 | disposition home or self-care (01) ==
LOC: NCHCN 17:09
PROVIDERS: PCP Nurse Practitioner Family; Visit Provider Nurse Practitioner Family
DX: R53.83 Other fatigue (principal); Z86.79 Personal history of other diseases of the circulatory system; Z13.220 Encounter for screening for lipoid disorders; Z13.1 Encounter for screening for diabetes mellitus; W57.XXXA Bitten or stung by nonvenomous insect and other nonvenomous arthropods, initial encounter; T14.8XXA Other injury of unspecified body region, initial encounter; I10 Essential (primary) hypertension; Z79.899 Other long term (current) drug therapy
CPT/HCPCS: 80053; 80061; 85027; 87798; 82607; 83036; 83735; 84443; 86618

== ENCOUNTER 2022-07-30 00:10 | Outpatient (CLI) | payer OTHER, SELFPAY ==
--- NOTE | 2022-07-30 14:00 | DI.DEXA_ITS ---
Exam(s) XR DEXA BONE DENSITY W/WO UNRULY EXAM: XR DEXA BONE DENSITY W/WO UNRULY CLINICAL HISTORY: ASYMPTOMATIC POSTMENOPAUSAL STATUS, Z78.0 TECHNIQUE: COMPARISON: No exams were available for comparison FINDINGS: Lateral Spine Image: Unremarkable. No compression deformities identified. Left hip: Total T-Score: -2.3. Total Z-Score: -0.5 T- and Z-scores: Findings are consistent with osteopenia. There is osteoporosis in the femoral neck with a T-score of -2.7. Lumbar Spine: Total T-Score: -1.6 Total Z-Score: 0.8 T- and Z-scores: Findings are consistent with osteopenia. IMPRESSION: Osteoporosis in the left femoral neck.
== END 2022-07-30 00:30 ==
LOC: DI 00:10
PROVIDERS: PCP Nurse Practitioner Family; Visit Provider Nurse Practitioner Family
DX: M81.0 Age-related osteoporosis without current pathological fracture (principal); M85.88 Other specified disorders of bone density and structure, other site; Z78.0 Asymptomatic menopausal state
CPT/HCPCS: 77080

== ENCOUNTER 2022-07-31 16:56 | Outpatient (REF) | payer OTHER, SELFPAY ==
[2022-07-31 17:04] LABS: Abs Immature Grans 0.02 10^3/uL (0.0-0.06); Absolute Basophil Count 0.01 10^3/uL (0.0-0.2); Absolute Lymphocyte Count 0.77 10^3/uL (1.2-3.4); Absolute Monocyte Count 0.56 10^3/uL (0.1-0.8); Absolute Neutrophil Count 6.76 10^3/uL (1.2-6.7); Basophils % 0.1; HCT 40.9 % (36.0-46.0); HGB 13.2 g/dL (11.2-15.7); Immature Grans % 0.2; Lymphocytes % 9.5; MCH 31.4 pg (27.0-33.0); MCHC 32.3 % (32.0-36.0); MCV 97 fL (80-95); MPV 10.9 fL (8.0-11.0); Monocytes % 6.9; Neutrophils % 83.3; Platelet Count 212 10^3/uL (130-400); RBC 4.21 10^6/uL (3.93-5.22); RDW 14.2 % (11.7-14.6); RDW-SD 50.4 fL; WBC 8.12 10^3/uL (4.4-10.8)
[2022-07-31 17:06] LABS: ESR 8 mm/hr (0-30)
[2022-07-31 17:28] LABS: ALT 21 U/L (14-59); AST 19 U/L (15-37); Alkaline Phosphatase 58 U/L (46-116); Anion Gap 9.9 mmol/L (3-11); BUN 22 mg/dL (7-18); Bilirubin, Total 1.5 mg/dL (0.2-1.0); CO2 27.1 mmol/L (21.0-32.0); Calcium 9.5 mg/dL (8.5-10.1); Chloride 104 mmol/L (98-107); Estimated GFR 59.12 (mL/min/1.73m2); Glucose 109 mg/dL (74-106); Lipase 28 U/L (16-77); Potassium 4.4 mmol/L (3.5-5.1); Sodium 141 mmol/L (136-145)
== END 2022-07-31 16:57 | disposition home or self-care (01) ==
LOC: LBN 16:56
PROVIDERS: PCP Nurse Practitioner Family; Visit Provider Family Medicine
DX: K92.1 Melena (principal); R10.9 Unspecified abdominal pain
CPT/HCPCS: 80053; 83690; 85652; 85025

== ENCOUNTER 2022-08-25 10:05 | Outpatient (CLI) | payer OTHER, SELFPAY ==
--- NOTE | 2022-08-25 10:00 | RT.EKG_ITS ---
APPROVED REPORT Exam: Resting ECG Reason for Exam: tachycardia on exam Patient Location: O HR:138 bpm ECG Measurements Heart Rate 138 AXIS AL 167 P 173 QRSd 76 QRS 74 QT 266 T -63 QTc 403 Conclusion Sinus or ectopic atrial tachycardia...P axis (-45,135), rate> 99 Repolarization abnormality, prob rate related...ST dep, T neg, tachycardia
== END 2022-08-25 10:06 | disposition home or self-care (01) ==
LOC: DI.CARD 10:05
PROVIDERS: PCP Nurse Practitioner Family; Visit Provider Internal Medicine Cardiovascular Disease
DX: I47.1 Supraventricular tachycardia (principal)
CPT/HCPCS: 93010

== ENCOUNTER 2022-10-27 15:37 | Outpatient (CLI) | payer OTHER, SELFPAY ==
--- NOTE | 2022-10-27 14:15 | DI.RAD_ITS ---
Exam(s) XR SHOULDER LT COMPLETE 2+V EXAM: XR SHOULDER LT COMPLETE 2+V CLINICAL HISTORY: left shoulder pain. TECHNIQUE: 2D digital imaging was performed of the left shoulder. Two images were obtained. AP and axillary views were obtained. COMPARISON: No exams were available for comparison FINDINGS: BONES: No acute fracture is present. No bony destructive lesion is seen. JOINTS: No dislocation present. SOFT TISSUE: Portions of the patient's cardiac pacing device overlies the shoulder. IMPRESSION: Unremarkable radiographs of the left shoulder. DATA REPOSITORY: RADIATION DOSE DELIVERED:
== END 2022-10-27 15:38 | disposition home or self-care (01) ==
LOC: DIORS 15:38
PROVIDERS: PCP Nurse Practitioner Family; Referring Provider Nurse Practitioner Family; Visit Provider Student in an Organized Health Care Education/Training Program
DX: M25.512 Pain in left shoulder (principal)
CPT/HCPCS: 73030

== ENCOUNTER 2022-11-17 15:01 | Outpatient (REF) | payer OTHER, SELFPAY ==
[2022-11-17 14:11] LABS: Abs Immature Grans 0.01 10^3/uL (0.0-0.06); Absolute Basophil Count 0.03 10^3/uL (0.0-0.2); Absolute Eosinophil Count 0.08 10^3/uL (0.0-0.7); Absolute Lymphocyte Count 1.17 10^3/uL (1.2-3.4); Absolute Monocyte Count 0.57 10^3/uL (0.1-0.8); Absolute Neutrophil Count 4.56 10^3/uL (1.2-6.7); Basophils % 0.5; Eosinophils % 1.2; HCT 39.1 % (36.0-46.0); HGB 12.4 g/dL (11.2-15.7); Immature Grans % 0.2; Lymphocytes % 18.2; MCHC 31.7 % (32.0-36.0); MCV 101 fL (80-95); MPV 9.7 fL (8.0-11.0); Monocytes % 8.9; Platelet Count 226 10^3/uL (130-400); RBC 3.88 10^6/uL (3.93-5.22); RDW 13.4 % (11.7-14.6); RDW-SD 50.3 fL; WBC 6.42 10^3/uL (4.4-10.8)
[2022-11-17 14:24] LABS: ALT 21 U/L (14-59); AST 21 U/L (15-37); Albumin 3.8 g/dL (3.4-5.0); Alkaline Phosphatase 73 U/L (46-116); Anion Gap 7.8 mmol/L (3-11); BUN 19 mg/dL (7-18); Bilirubin, Total 2.1 mg/dL (0.2-1.0); CO2 28.2 mmol/L (21.0-32.0); CREATININE 0.8 mg/dL (0.55-1.02); Calcium 8.9 mg/dL (8.5-10.1); Chloride 104 mmol/L (98-107); Estimated GFR 76.79 (mL/min/1.73m2); Glucose 92 mg/dL (74-106); Potassium 4.6 mmol/L (3.5-5.1); Sodium 140 mmol/L (136-145)
[2022-11-19 07:11] LABS: Campylobacter PCR Negative (Negative); Salmonella PCR Negative (Negative); Shiga Toxin PCR Negative (Negative); Shigella/Enteroinvasive Ecoli Negative (Negative)
== END 2022-11-17 15:02 | disposition home or self-care (01) ==
LOC: LBN 15:01
PROVIDERS: PCP Nurse Practitioner Family; Visit Provider Physician Assistant Medical
DX: R10.30 Lower abdominal pain, unspecified (principal); R19.7 Diarrhea, unspecified; Z87.19 Personal history of other diseases of the digestive system
CPT/HCPCS: 80053; 87329; 87493; 87505; 85025; 87177

== ENCOUNTER 2022-11-19 00:15 | Outpatient (CLI) | payer OTHER, SELFPAY ==
[2022-11-19] MEDS: Barium Sulfate 2% W/V-Berry Smoothie 450 ML BTL PO (10:27)
[2022-11-19] MEDS: Normal Saline Flush 10 ML SYR IJ (12:44)
[2022-11-19] MEDS: Normal Saline - Diluent 50 ML VIAL IJ ×2 (12:48→12:52)
[2022-11-19] MEDS: Omnipaque 350 MG/ML 100 ML BTL IJ (12:54)
--- NOTE | 2022-11-19 14:15 | DI.CT_ITS ---
Exam(s) CT ABDOMEN PELVIS W EXAM: CT ABDOMEN PELVIS W CLINICAL HISTORY: LOWER ABD PAIN, R10.30, H/O DIVERTICULITIS, Z87.19, SEVERE BOUTS O DIARRHEA. TECHNIQUE: Imaging Protocol: Axial computed tomography images with coronal and sagittal reformatted images were created and reviewed CONTRAST MATERIAL: Intravenous: Omnipaque 350 Contrast volume:100 ml Oral: yes / COMPARISON: CT CT ABDOMEN PELVIS CTA from 02/04/2021 FINDINGS: ABDOMEN: Lung Bases: Normal where visualized. Liver: Normal density. No measurable mass. Gallbladder and biliary tract: No radiodense calculus or dilation. Pancreas: Normal density, no abnormal calcifications or inflammatory process. Spleen: Normal. Kidneys: Normal size, contour and axis. No radiodense stones or obstructive uropathy. No suspicious m asses seen. Adrenal glands: No masses seen. Abdominal Aorta: Abdominal portion non-dilated. Atherosclerotic changes. Soft tissues: Unremarkable. PELVIS: Bladder: No gross wall thickening. No calculi.No focal mass. Bowel: No obstruction. Wall thickening of the distal sigmoid in region of diverticula, consistent w ith mild diverticulitis. No evidence of perforation or abscess. Appendix normal. Peritoneal cavity: No ascites, collection or mesenteric inflammatory response. Bones: Unremarkable for age. Reproductive organs: No change in right ovarian cyst and left-sided exophytic fibroid. Lymph nodes: Unremarkable. Impression: Sigmoid diverticulitis. No perforation or abscess. RADIATION DOSE DELIVERED: 976.77mGy.cm Total DLP DATA REPOSITORY: All CT scans at this facility are submitted to the National Radiology Data Registry (NRDR) Dose Index Registry (DIR) with the [employer] (A[employer]). RADIATION OPTIMIZATION: All CT scans at this facility use at least one of these dose optimization te chniques: automated exposure control; mA and/or kV adjustment per patient size (includes targeted exa ms where dose is matched to clinical indication); or iterative reconstruction.
== END 2022-11-19 00:35 ==
LOC: DI 00:15
PROVIDERS: PCP Nurse Practitioner Family; Visit Provider Physician Assistant Medical
DX: Z87.19 Personal history of other diseases of the digestive system (principal); R10.30 Lower abdominal pain, unspecified; K57.32 Diverticulitis of large intestine without perforation or abscess without bleeding
CPT/HCPCS: 74177; J3490

== ENCOUNTER 2022-11-19 11:59 | Outpatient (REF) | payer OTHER, SELFPAY ==
[2022-11-19 14:10] LABS: C Diff PCR Negative (Negative)
== END 2022-11-19 12:00 | disposition home or self-care (01) ==
LOC: LBN 11:59
PROVIDERS: PCP Nurse Practitioner Family; Visit Provider Physician Assistant Medical
DX: R19.7 Diarrhea, unspecified (principal); R10.30 Lower abdominal pain, unspecified; Z87.19 Personal history of other diseases of the digestive system
CPT/HCPCS: 87329; 87493; 87177

== ENCOUNTER → 2023-02-03 00:57 | Outpatient (CLI) | payer OTHER, SELFPAY ==
--- NOTE | 2023-02-03 10:30 | DI.US_ITS ---
APPROVED REPORT EXAM: Comprehensive 2D, Doppler, and color-flow Echocardiogram Patient Location: Out-Patient [facility]acing Operator: Emily Garrido RDCS (AE) Indications: Aortic stenosis, Tachycardia Other Information Study Quality: Adequate Conclusion Normal left ventricular wall thickness and chamber size. Ejection fraction is within the normal rang e. There are no segmental wall motion abnormalities Normal right ventricular size and systolic function Both atria are normal in size Device lead noted in the right heart Aortic valve is calcified. There is mild aortic regurgitation. There is no hemodynamically signific ant aortic stenosis Normal mitral valve with mild regurgitation Normal tricuspid valve with mild regurgitation. Estimated right ventricular systolic pressure is 32 mmHg Dilated ascending aorta measuring 3.83 cm Wall motion Left Ventricle The left ventricle is normal size. The left ventricular systolic function is normal. The left ventric ular ejection fraction is within the normal range. There is normal left ventricular wall thickness. T here is normal LV segmental wall motion. There is no ventricular septal defect visualized. LVEF is 54 %. Right Ventricle The right ventricle is normal size. The right ventricular systolic function is normal. Pacemaker lead is present in the right ventricle. Atria The left atrium size is normal. The right atrium size is normal. The interatrial septum is intact wit h no evidence for an atrial septal defect. Aortic Valve Aortic valve is calcified. Number of aortic valve leaflets could not be assessed. No hemodynamically significant valvular aortic stenosis. Mild aortic regurgitation. Mitral Valve The mitral valve is normal in structure. No evidence of mitral valve stenosis. Mild mitral regurgitat ion. Tricuspid Valve The tricuspid valve is normal in structure. There is no tricuspid valve stenosis. Mild tricuspid regu rgitation. The RVSP is 32.1 mmHg. Pulmonic Valve The pulmonary valve is normal in structure. There is no pulmonic valvular stenosis. There is no pulmo anthony valvular regurgitation. Great Vessels The aortic root is normal in size. The ascending aorta is moderately dilated. Aortic arch is normal in caliber. The IVC collapses <50% with inspiration. Pericardium There is no pericardial effusion. 2D Dimensions IVSD d PLAX 0.75 cm F: 0.6-1.0 Ao Root d 3.33 cm F: 2.7 - 3.3 LVPW d PLAX 0.75 cm F: 0.6 - 1.0 Ao Asc Diam d 3.83 cm F: 2.3 - 3.1 LVID d PLAX 4.51 cm F: 3.8 - 5.2 LVDs 3.28 cm F: 2.2 - 3.5 LV EF Teichholz 53.1 % FS 27.18 % LV EDV (Teich) 92.8 mL LV ESV (Teich) 43.6 mL M-Mode TAPSE 1.84 cm (M/F) >1.7 Auto EF LV EDV A4C 102.1 mL LV EDV A2C 99.9 mL LV EDV BP 102.9 mL LV ESV A4C 47.1 mL LV ESV A2C 46.1 mL LV ESV BP 47.4 mL LVEF(%) A4C 53.8 % LVEF(%) A2C 53.8 % LVEF(%) BP 53.9 % LV SV A4C 55.0 ml LV SV A2C 53.8 ml LV SV BP 55.5 ml LV CO A4C 3.3 L/min LV CO A2C 3.2 L/min LV CO BP 3.3 L/min HR A4C 60.00 BPM HR A2C 59.90 BPM LV EDV Index (BP) LA Volume LA Length A4C 4.4 cm LA Length A2C 4.8 cm LA Area A4C s 12.69 cm2 LA Area A2C s 17.54 cm2 LA Vol A4C A-L 30.75 mL LA Vol A2C A-L 54.84 mL LA Vol Biplane A-L 42.5 mL LA Vol/BSA A4C A-L LA Vol/BSA A2C A-L LA Vol/BSA BP A-L 26.2 mL/m2 LA Vol A4C MOD 29.4 mL LA Vol A2C MOD 50.9 mL LA Vol BP MOD 39.8 mL RA Volume RA Area A4C 9.3 cm2 RA ESV A4C (A-L) 18.1mL RA Vol/BSA A4C A-L RA Length A4C 4.0 cm RA ESV A4C (MOD) 17.1mL LV Diastology MV E' medial 0.058 (>0.07 m/s) MV E Vmax 0.72 (0.4-1.3 m/s) MV E/E' MED 12.41 (<14) MV A Vmax 0.75 (0.4-1.3 m/s) MV E' lateral 0.092 (>0.1 m/s) E/A Ratio 1.0 MV E/E' LAT 7.83 (<14) MV E' Average 0.075 m/s MV E/E'(average) 9.60 Aortic Valve AoV Vmax 2.54 m/s LVOT Vmax 0.65 m/s AoV Peak Grad 31.0 mmHg LVOT Peak Grad 1.7 mmHg AoV Area (Vmax) 0.84 cm2 LVOT VTI 0.190 m AoV VTI 0.698 m LVOT Mean Grad 1.1 mmHg AoV Mean [place]. 2.02 m/s LVOT SV 62.51 mL AoV Mean Grad 17.1 mmHg LVOT Diam s 2.00 cm AoV Area (VTI) 0.90 cm2 AV Regurg Peak Gr. 36.25 mmHg Velocity Ratio 0.26 AR Decel [place] 1.4m/sec2 AR DT 2080 msec AR PHT 603 msec AR Vmax 3.01 m/s Mitral Valve MV DT 173 (160-240 msec) Pulmonary Valve PV Vmax 0.58 (0.5-1.5 m/s) RVOT Vmax 0.40 m/s PV Peak Grad 1.4 mmHg RVOT Peak Gr. 0.7 mmHg PV Mean [place] 0.41 m/s RVOT VTI 0.109 m PV Mean Grad 0.7 mmHg RVOT Mean Gr. 0.3 mmHg Tricuspid Valve RA Pressure 8.00 mmHg TR Vmax 2.45 m/s TV S' 0.10 m/s TR Peak Grad 24.0 mmHg RVSP (TR) 32.1 mmHg
== END ==
PROVIDERS: PCP Nurse Practitioner Family; Visit Provider Nurse Practitioner Family
DX: I35.0 Nonrheumatic aortic (valve) stenosis (principal)
CPT/HCPCS: 93306